=== PATIENT | female | born 1945 | race Caucasian/White ===

== ENCOUNTER 2019-07-09 02:16 | Emergency (ER) | payer MEDICARE, SELFPAY ==
[2019-07-09 02:25] VITALS: BP 188/83; PULSE 81; RESP 17; TEMP 36.6; O2SAT 98
--- NOTE | 2019-07-09 02:27 | ED.BACK ---
HPI - Back Pain/Injury General Chief Complaint: Back Pain/Injury Stated Complaint: back pain Time Seen by Provider: 07/09/19 02:25 Source: patient and RN notes reviewed Mode of arrival: other Limitations: no limitations History of Present Illness HPI Narrative: Pt is a 74 y/o female who presents to the ED with c/o chronic lower back pain that worsened yesterday (07/08/19) after going to the grocery store. Pt states that her pain feels like spasms. She notes that her pain has been constant without any relief of Tylenol or a hot shower. She states her pain is alleviated minimally when she lays in her recliner. Pt has a hx of cervical spinal stenosis and lumbar spinal stenosis. Pt has been to pain management for her sx. Pt states that she was recommended to come to the ED if her pain worsened before her appointment on 07/15/19. She states that this has been the worse episode of back pain she has ever had. She states that she was taking Baclofen and Ibuprofen, which alleviated her pain. She notes that she was taken off Baclofen and was prescribed a new medication, but the new medication has not helped her pain. Pt also reports right flank pain. MD elicited complaint: back pain Pertinent past history: prior back pain Onset (ago): day(s) (2) Timing: constant Severity: severe Similar Symptoms Previously: Yes Quality: spasming Location: right lower back and left lower back Relieving factors: other (minimally when laying in her recliner) Associated symptoms: other (right flank pain) Treatments prior to arrival: acetaminophen Related Data Home Medications Medication Instructions Recorded Confirmed loratadine 10 mg tablet 10 mg PO DAILY 02/20/19 03/04/19 Allergies Allergy/AdvReac Type Severity Reaction Status Date / Time sulfamethoxazole Allergy Unknown Rash Verified 07/09/19 02:30 trimethoprim Allergy Unknown Rash Verified 07/09/19 02:30 Review of Systems Review of Systems: All systems reviewed & are unremarkable except as noted in HPI and below Genitourinary: Genitourinary: Reports flank pain (right) Musculoskeletal: Musculoskeletal: Reports back pain (lower) [facility] Past Medical History Medical History (Updated 07/09/19 @ 03:45 by Cody Salmeron MD) Arthritis Asthma Body mass index (BMI) 35.0-35.9, adult Cataracts, bilateral Diverticulosis Dyslipidemia, goal LDL below 130 Hyperlipidemia Insomnia Non morbid obesity due to excess calories Normal stress echocardiogram Paresthesia Post-menopausal Seasonal allergies Spinal stenosis of lumbar region Spinal stenosis, cervical region UTI (urinary tract infection) Weakness of both legs Surgical History Surgical History (Updated 07/09/19 @ 02:46 by Kandy Hill) H/O breast biopsy left breast H/O dilation and curettage H/O skin graft x2 History of hysterectomy History of lumpectomy of right breast x2 Hx of cataract removal with insertion of prosthetic lens Hx of tonsillectomy Social History Social History Smoking status: Never smoker Second hand tobacco smoke exposure: No Exam Const: General: no acute distress and alert Orientation/consciousness: patient oriented x3 HENMT: Head: normal to inspection Resp: Effort & Inspection: normal respiratory effort Skin: General skin exam: normal color Neuro: General: patient oriented x3, moves all extremities and no focal motor deficits Speech: normal speech Gait exam (Neuro): Normal gait present Extrem: General: normal to inspection Course Vital Signs Vital signs: Vital Signs Temperature 36.6 C 07/09/19 02:25 Pulse Rate 81 07/09/19 02:25 Respiratory Rate 17 07/09/19 02:25 Blood Pressure 188/83 H 07/09/19 02:25 Pulse Oximetry 98 07/09/19 02:25 Temperature 36.6 C 07/09/19 02:25 Pulse Rate 81 07/09/19 02:25 Respiratory Rate 17 07/09/19 02:25 Blood Pressure 188/83 H 07/09/19 02:25 Pulse Oximetry 98
--- NOTE | 2019-07-09 02:30 | PC.NURSE ---
pt's daughter states this is ridiculous. I shouldn't have to choose between my parents. I don't give a shit about a policy.
[2019-07-09 03:12] VITALS: TEMP 36.6
[2019-07-09 04:13] VITALS: BP 172/79; PULSE 66; RESP 16; TEMP 36.4; O2SAT 95
== END 2019-07-09 04:16 | disposition home or self-care (01) ==
PROVIDERS: Emergency Provider Emergency Medicine; PCP Internal Medicine
DX: M54.6 Pain in thoracic spine (principal); G89.29 Other chronic pain; M48.02 Spinal stenosis, cervical region; M48.061 Spinal stenosis, lumbar region without neurogenic claudication; M19.90 Unspecified osteoarthritis, unspecified site; J45.909 Unspecified asthma, uncomplicated; E78.5 Hyperlipidemia, unspecified; E66.09 Other obesity due to excess calories; Z68.35 Body mass index [BMI] 35.0-35.9, adult; Z87.440 Personal history of urinary (tract) infections; Z98.42 Cataract extraction status, left eye; Z98.41 Cataract extraction status, right eye; Z96.1 Presence of intraocular lens
CPT/HCPCS: 96372; 99283; A9270; J3360

== ENCOUNTER 2019-10-08 10:50 | Outpatient (CLI) | payer MEDICARE, SELFPAY ==
--- NOTE | ~2019-10-08 | XR_ITS ---
EXAMINATION: XR hand RT min 3V, XR wrist RT min 3V DATE: 10/08/2019 11:27 INDICATION: Right hand and wrist pain TECHNIQUE: 1. Posteroanterior, ulnar deviation, oblique, and lateral views of the right wrist were obtained. 2. Dorsal palmar, oblique and lateral views of the right hand were obtained. COMPARISON: 01/04/2011 FINDINGS: Alignment of the right hand and wrist are normal. No fracture identified. Severe osteoarthritis at t he first carpometacarpal joint. Mild osteoarthritis at the triscaphe, first metacarpophalangeal and m ultiple predominantly distal interphalangeal joints. Again seen is a lucent likely degenerative subar ticular cyst with thin sclerotic margins located in the triquetrum. Osteopenia. Diffuse soft tissue s welling about the wrist. IMPRESSION: 1. 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 No acute osseous abnormal ity. Reviewed, dictated and finalized at location A. IMPRESSION: 1. 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 No acute osseous abnormality.
== END 2019-10-08 10:51 | disposition home or self-care (01) ==
LOC: ANHIMG 11:02
PROVIDERS: PCP Internal Medicine; Visit Provider Nurse Practitioner Adult Health
DX: M19.041 Primary osteoarthritis, right hand (principal); M25.531 Pain in right wrist
CPT/HCPCS: 73110; 73130

== ENCOUNTER → 2020-01-27 12:40 | Outpatient (CLI) | payer MEDICARE, SELFPAY ==
--- NOTE | ~2020-01-27 | MM_ITS ---
EXAMINATION: MM screening arleen BI w sharon HISTORY: Screening TECHNIQUE: Craniocaudal and mediolateral oblique 3-D tomosynthesis images were obtained and synthetic 2-D images were generated. CAD analysis was submitted and interpreted. COMPARISON: Comparison to multiple prior studies sequentially, with oldest reviewed study dated 05/29. BREAST PARENCHYMAL COMPOSITION: There are scattered areas of fibroglandular density. FINDINGS: There is no evidence of suspicious mass, calcification, or architectural distortion to sugg est malignancy in either breast. There has been no suspicious interval change. IMPRESSION: 1. No mammographic evidence of malignancy. 2. Recommend routine screening mammography in one year. BI-RADS Category 1: Negative Reviewed, dictated and finalized at location A.
== END ==
PROVIDERS: PCP Internal Medicine; Visit Provider Obstetrics & Gynecology
DX: Z12.31 Encounter for screening mammogram for malignant neoplasm of breast (principal)
CPT/HCPCS: 77063; 77067

== ENCOUNTER → 2021-07-08 12:13 | Outpatient (CLI) | payer MEDICARE, SELFPAY ==
--- NOTE | ~2021-07-08 | MM_ITS ---
EXAMINATION: MM screening arleen BI w sharon HISTORY: Screening TECHNIQUE: Craniocaudal and mediolateral oblique 3-D tomosynthesis images were obtained and synthetic 2-D images were generated. CAD analysis was submitted and interpreted. COMPARISON: Comparison to multiple prior studies sequentially, with oldest reviewed study dated 05/29. BREAST PARENCHYMAL COMPOSITION: There are scattered areas of fibroglandular density. FINDINGS: There is no evidence of suspicious mass, calcification, or architectural distortion to sugg est malignancy in either breast. There has been no suspicious interval change. IMPRESSION: 1. No mammographic evidence of malignancy. 2. Recommend routine screening mammography in one year. BI-RADS Category 1: Negative Reviewed, dictated and finalized at location A.
== END ==
PROVIDERS: PCP Internal Medicine; Visit Provider Obstetrics & Gynecology
DX: Z12.31 Encounter for screening mammogram for malignant neoplasm of breast (principal)
CPT/HCPCS: 77063; 77067

== ENCOUNTER 2021-11-11 11:12 | Outpatient (CLI) | payer MEDICARE, SELFPAY ==
[2021-11-11 18:05] LABS: Alanine Aminotransferase 26 U/L (6-35); Albumin Level 4.1 g/dL (3.5-5.1); Alkaline Phosphatase 103 U/L (38-126); Anion Gap 7 mmol/L (8-16); Aspartate Amino Transferase 32 U/L (14-36); Bilirubin,Total 0.6 mg/dL (0.2-1.3); Blood Urea Nitrogen 16 mg/dL (7-17); Calcium 8.9 mg/dL (8.4-10.2); Carbon Dioxide 28 mmol/L (22-30); Chloride 105 mmol/L (98-107); Cholesterol 251 mg/dL (0-200); Estimated Glomerular Filt Rate > 60; Glucose 93 mg/dL (65-110); HDL Direct 39 mg/dL; Potassium 4.7 mmol/L (3.4-5.0); Sodium 140 mmol/L (137-145); Triglycerides 179 mg/dL (<150)
[2021-11-11 18:16] LABS: LDL Cholesterol Direct 125 mg/dL
== END 2021-11-11 11:13 | disposition home or self-care (01) ==
LOC: ANHGOSHLAB 11:13
PROVIDERS: PCP Internal Medicine; Visit Provider Family Medicine
DX: E78.5 Hyperlipidemia, unspecified (principal); Z13.228 Encounter for screening for other metabolic disorders
CPT/HCPCS: 36415; 80053; 80061

== ENCOUNTER 2022-08-25 09:25 | Outpatient (CLI) | payer MEDICARE, SELFPAY ==
[2022-08-25 13:01] LABS: Alanine Aminotransferase 20 U/L (6-35); Albumin Level 4.3 g/dL (3.5-5.1); Alkaline Phosphatase 109 U/L (38-126); Anion Gap 7 mmol/L (8-16); Aspartate Amino Transferase 29 U/L (14-36); Bilirubin,Total 0.6 mg/dL (0.2-1.3); Blood Urea Nitrogen 17 mg/dL (7-17); Carbon Dioxide 29 mmol/L (22-30); Chloride 104 mmol/L (98-107); Estimated Glomerular Filt Rate > 60; Glucose 89 mg/dL (65-110); Potassium 4.4 mmol/L (3.4-5.0); Sodium 140 mmol/L (137-145)
[2022-08-25 13:26] LABS: Rubella IgG Antibody 49.3 IU/ML
[2022-08-30 15:07] LABS: Rubeola Measles IgG >300.00 AU/mL
== END 2022-08-25 09:26 | disposition home or self-care (01) ==
PROVIDERS: PCP Family Medicine; Visit Provider Family Medicine
DX: Z13.228 Encounter for screening for other metabolic disorders (principal); Z01.84 Encounter for antibody response examination
CPT/HCPCS: 36415; 80053; 86735; 86762; 86765

== ENCOUNTER 2022-11-28 08:22 | Outpatient (CLI) | payer MEDICARE, SELFPAY ==
--- NOTE | 2022-11-28 08:36 | ECHO_ITS ---
Patient Info Name: Prem Morales Age: 77 years : 1945 Gender: Female Ht: 67 in Wt: 236 lbs BSA: 2.30 m2 HR: 71 bpm BP: 161 / 98 mmHg Heart Rhythm: Sinus Rhythm Technical Quality: Good Exam Date: 11/28/2022 8:47 AM Exam Location: [facility] Patient Status: Outpatient Admit Date: 11/28/2022 Staff Ordering Physician: Jay Champagne DO Business Analysis Consultant: Arina Wu RDCS Attending Provider: Jay Champagne DO Referring Physician: Mahi AYON; Exam Type: CA echo doppler color flow Study Info Indications R06.09 - Other forms of dyspnea Complete two-dimensional, color flow and Doppler transthoracic echocardiogram is performed. Summary 1. Complete two-dimensional, color flow and Doppler transthoracic echocardiogram is performed. 2. Left ventricular chamber dimension is normal. 3. Left ventricular systolic function is normal, estimated at 60-65%. 4. There is mild concentric increased left ventricular wall thickness. 5. The left ventricular diastolic function is abnormal. 6. E/e' 15 is elevated. 7. There is mild aortic valve sclerosis. 8. There is mild mitral valve regurgitation. 9. There is trace tricuspid valve regurgitation. 10. Mild pulmonary hypertension, estimated pulmonary arterial systolic pressure is 42 mmHg. 11. Normal inferior vena cava with <50% collapse upon inspiration consistent with elevated right atrial pressure, 10 mmHg. Left Ventricle E/e' 15 is elevated. Left ventricular chamber dimension is normal. Left ventricular systolic function is normal, estimated at 60-65%. There is mild concentric increased left ventricular wall thickness. The left ventricular diastolic function is abnormal. Right Ventricle Right ventricular systolic function is normal and with normal TAPSE 2.5 cm. Right ventricular chamber dimension is normal. Left Atria Left atrial chamber dimension is normal. Right Atria Right atrial chamber dimension is normal. Aortic Valve The aortic valve is trileaflet. There is mild aortic valve sclerosis. There is no aortic valve stenosis. There is no aortic valve regurgitation. Pulmonic Valve There is no pulmonic regurgitation. Mitral Valve There is no mitral valve stenosis. There is mild mitral valve regurgitation. Tricuspid Valve There is trace tricuspid valve regurgitation. Mild pulmonary hypertension, estimated pulmonary arterial systolic pressure is 42 mmHg. Pericardium/Pleural There is no pericardial effusion. Inferior Vena Cava Normal inferior vena cava with <50% collapse upon inspiration consistent with elevated right atrial pressure, 10 mmHg. Aorta The aortic root size at the sinus of Valsalva is normal. Left Ventricular Outflow Tract Name Value Normal LVOT 2D LVOT Diameter 2.0 cm LVOT Doppler LVOT Peak Gradient 5 mmHg LVOT Mean Gradient 2 mmHg LVOT VTI 26 cm LVOT VTI/AV VTI Ratio 0.7 LVOT Stroke Volume 78 ml LVOT CO 5.0 l/min LVOT CI 2.2 l/min/m2 Pulmonic Valve
== END 2022-11-28 08:23 | disposition home or self-care (01) ==
PROVIDERS: PCP Family Medicine; Visit Provider Family Medicine
DX: R06.09 Other forms of dyspnea (principal); I08.3 Combined rheumatic disorders of mitral, aortic and tricuspid valves
CPT/HCPCS: 93306

== ENCOUNTER 2022-12-06 13:49 | Outpatient (CLI) | payer MEDICARE, SELFPAY ==
--- NOTE | ~2022-12-06 | XR_ITS ---
XR abdomen/kub 1V 12/06/2022 14:16 Indication: Gross hematuria Procedure: KUB Comparison: No prior studies for comparison. Findings: Bowel gas pattern nonobstructive. Moderate colonic fecal loading. There is a right pelvic p hlebolith. No definite renal/ureteral stones. Lung bases unremarkable. Mild lumbar spondylosis. No ac cantwell osseous abnormality. There is osteoarthritis of the hips, right greater than left. Impression: 1: No acute abdominal abnormality. Reviewed, dictated and finalized at location B. Impression: 1: No acute abdominal abnormality.
--- NOTE | ~2022-12-06 | CT_ITS ---
EXAMINATION: CT abdomen pelvis wo/w con DATE: 12/06/2022 14:38 INDICATION: Gross hematuria. TECHNIQUE: Computed tomography (CT) of the abdomen and pelvis was performed without and with intraven ous contrast using a total of 130 mL Omnipaque-350 intravenous contrast with a double-bolus technique for simultaneous opacification of the renal parenchyma and renal collecting system. Automated exposu re control and iterative reconstruction technique were employed. The dose-length product was 2654.10 mGy-cm. COMPARISON: None FINDINGS: The visualized portions of the lung bases demonstrate mild atelectasis and mild chronic lung disease. No pleural effusion. The heart size is normal. No pericardial effusion. The liver, gallbladder, sple en, pancreas, and adrenal glands are normal. There are cysts in the kidneys measuring up to 4.0 cm on the left. There is no urolithiasis. The ureters are well opacified and are normal. The bladder is no t well distended. There are no dilated loops of bowel. The appendix is normal. There are no pathologi gm enlarged lymph nodes. There is no free intraperitoneal fluid. Aortic atherosclerosis is noted. There is moderate lumbar spondylosis. IMPRESSION: 1. No etiology for hematuria. Reviewed, dictated and finalized at location A.
[2022-12-06 14:22] LABS: Estimated Glomerular Filt Rate > 60
== END 2022-12-06 13:50 | disposition home or self-care (01) ==
PROVIDERS: PCP Family Medicine; Visit Provider Nurse Practitioner Adult Health
DX: R31.0 Gross hematuria (principal)
CPT/HCPCS: 74018; 74178; Q9967

== ENCOUNTER 2022-12-15 08:19 | Outpatient (CLI) | payer MEDICARE, SELFPAY ==
--- NOTE | ~2022-12-15 | NM_ITS ---
EXAMINATION: NM messi stress w perfusion DATE: 12/15/2022 10:41 INDICATION: Other forms of dyspnea TECHNIQUE: Rest images were obtained following intravenous administration of 11 mCi Tc99m tetrofosmin (Myoview). The patient was infused intravenously with Lexiscan (Regadenoson). Then, 34.6 mCi Tc99m t etrofosmin (Myoview) was administered intravenously, and stress images were obtained. Data was recons tructed into short axis and horizontal and vertical long axis SPECT images. Gated SPECT images were a lso obtained. COMPARISON: None. FINDINGS: There is no definite reversible or fixed perfusion abnormality to suggest ischemia or infar ction. There is normal left ventricular chamber size, wall motion and ejection fraction. Left ventr icular ejection fraction measures 67%. IMPRESSION: 1. Normal myocardial perfusion at rest and during stress. 2. Left ventricular ejection fraction measuring 67%. Reviewed, dictated and finalized at location A.
--- NOTE | 2022-12-15 08:43 | EST_ITS ---
Patient Info Name: Prem Morales Age: 77 years : 1945 Gender: Female Ht: 67 in Wt: 230 lbs BSA: 2.26 m2 HR: 66 bpm BP: 119 / 63 mmHg Heart Rhythm: Sinus Rhythm Exam Date: 12/15/2022 9:27 AM Exam Location: [facility] Stress Patient Status: Outpatient Admit Date: 12/15/2022 Staff Ordering Physician: Jay Champagne DO Attending Provider: Jay Champagne DO Exercise Technologist: Maday Ortiz CT Exercise Physician: Flash Howe DO Exam Type: CA stress messi w NM Study Info Indications R06.09 - Other forms of dyspnea A regadenoson stress test was performed. Summary 1. 1. Negative lexiscan stress test for ischemic ST changes by ECG criteria. 2. 2. Stable hemodynamics throughout the test. 3. 3. Nuclear scan to follow and will be reported separately. Please correlate with it. 4. 4. Patient informed of the above results. Protocol: Lexiscan Stress ECG Details Stage: REST Duration (min): 2 min : 12 sec HR (bpm): 65 SBP (mmHg): 119 DBP (mmHg): 63 Stage: REST Duration (min): 24 min : 37 sec HR (bpm): 68 SBP (mmHg): 119 DBP (mmHg): 63 Stage: STAGE 1 Duration (min): 1 min : 0 sec HR (bpm): 74 SBP (mmHg): 130 DBP (mmHg): 47 Stage: RECOVERY Duration (min): 1 min : 0 sec HR (bpm): 73 SBP (mmHg): 130 DBP (mmHg): 47 Stage: RECOVERY Duration (min): 2 min : 0 sec HR (bpm): 73 SBP (mmHg): 130 DBP (mmHg): 47 Stage: RECOVERY Duration (min): 3 min : 0 sec HR (bpm): 72 SBP (mmHg): 108 DBP (mmHg): 53 Stage: RECOVERY Duration (min): 3 min : 3 sec HR (bpm): 73 SBP (mmHg): 108 DBP (mmHg): 53 Rest HR: 68 bpm Peak HR: 76 bpm Rest Sys BP: 119 mmHg Peak Sys BP: 130 mmHg Max Pred HR: 144 bpm % Max Pred HR: 53 % Target HR: 122 bpm Max RPP: 9,880 bpm*mmHg Termination Reason: Completed protocol Cardiac Symptoms: Shortness of breath Total Time: 1 min : 0 sec Rest Cormier BP: 63 mmHg Peak Cormier BP: 47 mmHg Total Dose: 0.4 mg Resting ECG Sinus rhythm. Stress ECG No ST changes. Arrhythmias None. Report Signatures
== END 2022-12-15 08:20 | disposition home or self-care (01) ==
PROVIDERS: PCP Family Medicine; Visit Provider Family Medicine
DX: R06.09 Other forms of dyspnea (principal); R61 Generalized hyperhidrosis
CPT/HCPCS: 78452; 93017; A9502; J2785

== ENCOUNTER → 2023-01-26 14:30 | Outpatient (CLI) | payer MEDICARE, SELFPAY ==
--- NOTE | ~2023-01-26 | MM_ITS ---
EXAMINATION: MM screening arleen BI w sharon HISTORY: Screening mammogram TECHNIQUE: Craniocaudal and mediolateral oblique 3-D tomosynthesis images were obtained and synthetic 2-D images were generated. CAD analysis was submitted and interpreted. COMPARISON: 07/08/2021, 01/27/2020, 09/19/2018 bilateral screening mammogram examinations BREAST PARENCHYMAL COMPOSITION: There are scattered areas of fibroglandular density. Biopsy marker is again noted on the left. History of prior bilateral benign breast biopsies. FINDINGS: There is no evidence of suspicious mass, calcification, or architectural distortion to sugg est malignancy in either breast. There has been no suspicious interval change. IMPRESSION: 1. No mammographic evidence of malignancy. 2. Recommend routine screening mammography in one year. BI-RADS Category 1: Negative Reviewed, dictated and finalized at location A.
== END ==
PROVIDERS: PCP Obstetrics & Gynecology; Visit Provider Obstetrics & Gynecology
DX: Z12.31 Encounter for screening mammogram for malignant neoplasm of breast (principal)
CPT/HCPCS: 77063; 77067

== ENCOUNTER → 2023-03-06 14:47 | Outpatient (CLI) | payer MEDICARE, SELFPAY ==
--- NOTE | ~2023-03-06 | XR_ITS ---
EXAM: XR hip RT min 2V, XR hip LT min 2V DATE: 03/06/2023 15:04 HISTORY: fall 1 month ago lbp with bilat hip pain . COMPARISON: None available. FINDINGS: Decreased mineralization. Degenerative changes in the lumbar spine. Mild degenerative jacome ge in the bilateral SI joints. Mild degenerative change at the pubic symphysis. Moderate right and mi ld left hip degenerative change. No fracture or dislocation. IMPRESSION: Osteopenia. Moderate right and mild left hip osteoarthritis. Mild osteitis pubis. Reviewed, dictated and finalized at location K. ING MACHINE OPERATOR IMPRESSION: Osteopenia. Moderate right and mild left hip osteoarthritis. Mild o steitis pubis.
--- NOTE | ~2023-03-06 | XR_ITS ---
EXAMINATION: XR lumbar spine min 4V DATE: 03/06/2023 15:04 INDICATION: Low back pain TECHNIQUE: Anteroposterior, lateral, and bilateral oblique views of the lumbar spine, and cone-down l ateral view of the lumbosacral junction were obtained. COMPARISON: None. FINDINGS: Bone alignment is normal. There is no fracture. There is mild loss of intervertebral disc s pace height throughout the lumbar spine. The vertebral body heights are maintained. There is severe f acet joint osteoarthritis at L3-4, L4-5, and L5-S1. Calcified atherosclerosis is noted. IMPRESSION: 1. Mild lumbar spondylosis without acute findings. Reviewed, dictated and finalized at location F. T MUSIC SALESPERSON
== END ==
PROVIDERS: PCP Family Medicine; Visit Provider Family Medicine
DX: M25.551 Pain in right hip (principal); M25.552 Pain in left hip; M47.896 Other spondylosis, lumbar region; M85.852 Other specified disorders of bone density and structure, left thigh; M85.851 Other specified disorders of bone density and structure, right thigh; M16.0 Bilateral primary osteoarthritis of hip
CPT/HCPCS: 72110; 73502

== ENCOUNTER 2023-04-27 14:30 | Outpatient (RCR) | payer MEDICARE, SELFPAY ==
--- NOTE | 2023-03-30 17:07 | OPREHPOC ---
Outpatient Therapy Plan of Care This is a Multidisciplinary Plan of Care that may contain components documented by all disciplines (PT, OT, and ST.) PT Problem 1 PT Problem #1 Knowledge Deficit PT Goal 1 Goal Pt to be IND with issued HEP Target Visit 8 PT Problem 2 PT Problem #2 Pain PT Goal 1 Goal Pt to report hip pain no greater than 3/10 in the last week. Target Visit 8 PT Goal 2 Goal Pt to report 50% improvement in overall symptoms. Target Visit 8 PT Problem 3 PT Problem #3 Impaired Gait PT Goal 1 Goal Pt to improve 2 min walk distance from 315ft to 400ft Target Visit 8 PT Goal 2 Goal Pt to ambulate with equal stride length Target Visit 8 PT Problem 4 PT Problem #4 Impaired Range of Motion PT Goal 1 Goal Pt to improve passive hip ROM to 0 deg Target Visit 8 PT Problem 5 PT Problem #5 Impaired Functional Mobil PT Goal 1 Goal Pt to demonstrate a 20lb lift and carry without compensations Target Visit 8
--- NOTE | 2023-03-30 17:08 | PTOPEVAL1 ---
Assessment and note entered by Marah Ricardo, PT, DPT Evaluation Information Assessment Status Evaluation Diagnosis hip OA Onset 4 years Subjective Information Pt reports 2 falls in the last 3 months. She states she tripped and fell forward and few weeks ago. 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 She reports chronic lumbar stenosis that causes back spasms frequently. She states her back feels back to normal since her fall. Currently she reports lower back and hip pain on R side more than the L. She states she feels her hip ROM is limited. She states her standing tolerance is limited d/t her back and hip pain. Reported Pain Level Pain Score 3: Self Report Assessment PT Clinical Summary Prem presents to therapy for her initial evaluation with a diagnosis of R hip OA. Today she demonstrates decreased R hip passive ROM as well as decreased strength R>L, both limited by pain. She ambulates with a flexed posture d/t lack of terminal knee extension. She demonstrates increased time on the 5xSTS placing her at an increased risk for falls. Skilled therapy services are indicated to address the deficits noted above, to improve pain reports, and to improve functional mobility. Plan of Care Interventions Electrical Stimulation,Gait Training,Hot Pack/Cold Pack,Manual Therapy,Neuro Re-education,Patient/ Caregiver Educati,Therapeutic Activities, Therapeutic Exercise PT Services Indicated Yes Treatment Frequency and 2x/wk for 8 visits Duration These treatments will address the objective and functional deficits as defined above. The patient will be advanced safely and appropriately in order for the patient to progress towards his/her prior level of function. Additional exercises will be introduced and as well as a comprehensive home exercise program upon discharge, if needed, ?to ensure carryover of functional gains achieved in the clinic. This treatment plan has been reviewed and agreement upon by the patient.
--- NOTE | 2023-04-27 15:25 | PTOPDC ---
Assessment and note entered by Marah iRcardo, PT, DPT Evaluation Information Assessment Status Discharge Diagnosis hip OA Onset 4 years Subjective Information Pt reports therapy is progressing well, she states her hip does not hurt as much as it did prior. She states her back is the limiting factor, she states she can only stand for about 10 mins before she needs to sit down. She states she has been sleeping with a pillow in between the knees and using a log roll technique to get out of bed. She states her exercises help her to get through the day. Reported Pain Level Pain Score 2,1: Self Report Assessment PT Clinical Summary Prem presents to therapy for her progress report following 8 visits of skilled therapy to treat her diagnosis of R hip OA. Today she demonstrates some progress in her passive hip ROM, gait speed, and body mechanics. She reports 75% improvement in her overall function. She elected to continue her HEP at home vs continue with therapy despite recommendation.
== END 2023-04-27 16:11 | disposition home or self-care (01) ==
LOC: ANHGOSHPT 14:30
PROVIDERS: PCP Family Medicine; Visit Provider Family Medicine
DX: M16.11 Unilateral primary osteoarthritis, right hip (principal)
CPT/HCPCS: 97110; 97140; 97161; 97530

== ENCOUNTER 2023-06-20 15:21 | Emergency (ER) | payer MEDICARE, SELFPAY ==
--- NOTE | ~2023-06-20 | XR_ITS ---
EXAMINATION: XR chest 2V DATE: 06/20/2023 15:52 INDICATION: Chest heaviness. Shortness of breath. Cough. TECHNIQUE: Frontal and lateral views of the chest were obtained. COMPARISON: CT abdomen and pelvis 12/06/2022 FINDINGS: There is mild atelectasis at right lung base. No pleural effusion or pneumothorax. The hear t size is normal. IMPRESSION: 1. Mild atelectasis at right lung base. Reviewed, dictated and finalized at location E. S BLOWING INSTRUCTOR
--- NOTE | 2023-06-20 15:23 | ED.CHESTPAIN ---
HPI - Chest Pain General Chief Complaint: Chest Pain Stated Complaint: CHEST HEAVINESS/LIGHT HEADED/NAUSEA Time Seen by Provider: 06/20/23 15:23 Source: patient Mode of arrival: ambulatory Limitations: no limitations History of Present Illness HPI narrative: Prem is a 78-year-old female patient presenting to the clinic today with complaints of chest heaviness,tightness, dizziness, and nausea x3 days. She reports shortness of breath on exertion. She coughed up some yellow phlegm yesterday. Denies any fever, chills, or body aches. Reports the chest heaviness is across her entire anterior chest. Denies having any chest pain or radiation of pain. At home COVID test is negative today prior to coming into the [facility]. History of asthma. Reports that she did have COVID over 1 month ago. Related Data Home Medications Medication Instructions Recorded Confirmed fluticasone propionate 50 1 spray intranasal DAILY 03/06/23 06/20/23 mcg/actuation nasal spray,suspension (Flonase Allergy Relief) Allergies Allergy/AdvReac Type Severity Reaction Status Date / Time sulfamethoxazole Allergy Intermediate Rash Verified 06/20/23 15:41 trimethoprim Allergy Intermediate Rash Verified 06/20/23 15:41 Review of Systems Review of Systems: Pertinent positives per HPI. Patient denies any fever, chills, rash, headache, visual changes, runny nose, sore throat, palpitations, vomiting, diarrhea, constipation, abdominal pain, or any urinary issues. PMFSH Past Medical History Medical History Arthritis Asthma Body mass index (BMI) 35.0-35.9, adult Cataracts, bilateral Diverticulosis Dyslipidemia, goal LDL below 130 Encounter for counseling regarding immunization Hyperlipidemia Insomnia Non morbid obesity due to excess calories Normal stress echocardiogram Paresthesia Post-menopausal Screen for colon cancer Screening for breast cancer Seasonal allergies Spinal stenosis of lumbar region Spinal stenosis, cervical region UTI (urinary tract infection) Weakness of both legs Surgical History Surgical History H/O breast biopsy left breast H/O dilation and curettage H/O skin graft x2 History of hysterectomy History of lumpectomy of right breast x2 Hx of cataract removal with insertion of prosthetic lens Hx of tonsillectomy Family History Family History Father Family history of malignant neoplasm Mother Family history of malignant neoplasm Family history of kidney disease Social History Social History Smoking status: Never smoker Second hand tobacco smoke exposure: No Alcohol intake: former Alcohol use details: occasional Substance use: never Lack of Transportation: No Lack of Food: Never True Current Housing: I Have Housing Concerned About Future Housing: No Difficulty Paying Gas/Electric Bills: No Difficulty Paying for Meds: No Currently Unemployed: No Education: Trade/Vocational Certificate Difficulty w/ Childcare or Family Care: No Living arrangements: other Additional living arrangements comments: daughter Occupation/Education: retired Gender identity (if verbalized by the patient): Female Sexual Orientation (if Verbalized by the Patient): Straight or Heterosexual Comments At the time of my signature, I reviewed and agree with the nursing past medical, surgical, social, and family history. There is no relevant family history pertinent to the patient complaint. Exam Narrative: General: Well-developed, obese, in no apparent distress Head: Normocephalic, atraumatic Eyes: Pupils equally round and reactive to light bilaterally, EOM intact, sclera and conjunctive clear, no discharge, lids normal Ears: Left TM intact and opaque, left e
[2023-06-20 15:27] VITALS: BP 130/69; PULSE 75; RESP 16; TEMP 36.9; O2SAT 97
--- NOTE | 2023-06-20 15:27 | ECG_ITS ---
Measurements Intervals [place] Rate: 68 P: 31 NE: 137 QRS: 33 QRSD: 88 T: 48 QT: 400 QTc: 426 Interpretive Statements SINUS RHYTHM INCOMPLETE RIGHT BUNDLE BRANCH BLOCK BASELINE ARTIFACT- I, II, III, AVR, AVL, AVF BORDERLINE ECG NO PREVIOUS ECG AVAILABLE FOR COMPARISON Electronically Signed On 06-21-2023 14:52:38 LOG SAWYER by Flash Howe D.O.
== END 2023-06-20 16:17 | disposition short-term general hospital (02) ==
PROVIDERS: Emergency Provider Nurse Practitioner Family; PCP Family Medicine
DX: R07.89 Other chest pain (principal); R06.09 Other forms of dyspnea; R42 Dizziness and giddiness; M19.90 Unspecified osteoarthritis, unspecified site; J45.909 Unspecified asthma, uncomplicated; E78.5 Hyperlipidemia, unspecified; M48.061 Spinal stenosis, lumbar region without neurogenic claudication; M48.02 Spinal stenosis, cervical region; Z96.1 Presence of intraocular lens; Z98.42 Cataract extraction status, left eye; Z98.41 Cataract extraction status, right eye
CPT/HCPCS: 71046; 93005; 99213; G0463

== ENCOUNTER 2023-06-20 16:41 | Emergency (ER) | payer MEDICARE, SELFPAY ==
--- NOTE | ~2023-06-20 | XR_ITS ---
Portable chest x-ray Comparison: 06/20/2023 Clinical History: Shortness of breath Findings: Lungs are clear, without focal consolidation or pleural effusion. Cardiomediastinal silho uette is stable. Bones and soft tissues are unremarkable. Impression: Clear lungs. Reviewed, dictated and finalized at location . LEADER Impression: Clear lungs.
--- NOTE | ~2023-06-20 | CT_ITS ---
Clinical Indication: Elevated d-dimer CT Scan of the Chest with Contrast: Technique: Contiguous sections were acquired throughout the chest after intravenous administration of 100 cc of Omnipaque 350. Dose reduction technique was used on this scan by utilizing automated expos ure control and iterative reconstruction technique. The dose-length product (DLP) was 475.42 mGy-cm. Findings: There is no evidence of any significant mediastinal, hilar or axillary lymphadenopathy. There is no f illing defect in the pulmonary arterial tree to suggest pulmonary embolus. There is no evidence of ao rtic dissection or aneurysm. There is no evidence of pleural or pericardial effusion. The lungs are clear. No pulmonary nodules or infiltrates are noted. Images through the upper abdomen reveal no abnormalities. Impression: No evidence of pulmonary embolus, aortic dissection, or aortic aneurysm. Clear lungs. Reviewed, dictated and finalized at [facility]. HI DEVELOPER Impression: No evidence of pulmonary embolus, aortic dissection, or aortic aneurysm. Clear lungs.
[2023-06-20 16:54] VITALS: BP 127/79; PULSE 72; RESP 16; TEMP 36.4; O2SAT 98
--- NOTE | 2023-06-20 16:59 | ED.CHESTPAIN ---
HPI - Chest Pain General Chief Complaint: Chest Pain <Rosalind Raman PA-C - Last Filed: 06/22/23 18:42> Stated Complaint: chest pressure/tightness <Rsoalind Raman PA-C - Last Filed: 06/22/23 18:42> Time Seen by Provider: 06/20/23 16:59 <Rosalind Raman PA-C - Last Filed: 06/22/23 18:42> Focused HPI: This is a 78 year old female that presents to the ER for chest pain. Reports chest tightness. Like there is a band around her chest. Ongoing over the last couple of days. Reports exertional dyspnea. Reports a cough. Denies fever, lower extremity edema. GENERAL: Well-appearing, well-nourished, and in no acute distress. HEAD: Normocephalic, atraumatic. CHEST: Clear to auscultation. ?No respiratory distress. HEART: Regular rate and rhythm.? NEURO: ?Alert and oriented x3. Patient screened in triage and initial orders placed.? ?Additional care and disposition to be based upon?diagnostic testing and treatment. <Rosalind Raman PA-C - Last Filed: 06/22/23 18:42> Related Data Home Medications: Home Medications Medication Instructions Recorded Confirmed fluticasone propionate 50 1 spray intranasal DAILY 03/06/23 06/20/23 mcg/actuation nasal spray,suspension (Flonase Allergy Relief) <Rosalind Raman PA-C - Last Filed: 06/22/23 18:42> Allergies/Adverse Reactions: Allergies Allergy/AdvReac Type Severity Reaction Status Date / Time sulfamethoxazole Allergy Intermediate Rash Verified 06/20/23 15:41 trimethoprim Allergy Intermediate Rash Verified 06/20/23 15:41 <Rosalind Raman PA-C - Last Filed: 06/22/23 18:42> Review of Systems Review of Systems: All systems are reviewed and are negative unless stated otherwise in the HPI. <Shelton Osorio MD - Last Filed: 06/21/23 05:19> PMFSH Past Medical History Medical History: Medical History Arthritis Asthma Body mass index (BMI) 35.0-35.9, adult Cataracts, bilateral Diverticulosis Dyslipidemia, goal LDL below 130 Encounter for counseling regarding immunization Hyperlipidemia Insomnia Non morbid obesity due to excess calories Normal stress echocardiogram Paresthesia Post-menopausal Screen for colon cancer Screening for breast cancer Seasonal allergies Spinal stenosis of lumbar region Spinal stenosis, cervical region UTI (urinary tract infection) Weakness of both legs <Rosalind Raman PA-C - Last Filed: 06/22/23 18:42> Surgical History Surgical History: Surgical History H/O breast biopsy left breast H/O dilation and curettage H/O skin graft x2 History of hysterectomy History of lumpectomy of right breast x2 Hx of cataract removal with insertion of prosthetic lens Hx of tonsillectomy <Rosalind Raman PA-C - Last Filed: 06/22/23 18:42> Family History Family History: Family History Father Family history of malignant neoplasm Mother Family history of malignant neoplasm Family history of kidney disease <Rosalind Raman PA-C - Last Filed: 06/22/23 18:42> Social History Social History: Social History Smoking status: Never smoker Second hand tobacco smoke exposure: No Alcohol intake: former Alcohol use details: occasional Substance use: never Lack of Transportation: No Lack of Food: Never True Current Housing: I Have Housing Concerned About Future Housing: No Difficulty Paying Gas/Electric Bills: No Difficulty Paying for Meds: No Currently Unemployed: No Education: Trade/Vocational Certificate Difficulty w/ Childcare or Family Care: No Living arrangements: other Additional living arrangements comments: daughter Occupation/Education: retired Gender identity (if verbalized by the patient): Female Sexual Orientation (if Verbali
[2023-06-20 18:27] LABS: Basophils Percent Auto 0.5 % (0.2-1.2); Eosinophils Absolute Auto 0.2 K/mm3 (0-0.3); Eosinophils Percent Auto 2.9 % (0-4.4); Hematocrit 40.6 % (37.0-47.0); Hemoglobin 12.8 g/dL (12.0-15.0); Immature Granulocyte Absolute 0.03 K/mm3 (0.00-0.031); Immature Granulocyte Percent A 0.4 % (0-0.5); Lymphocytes Absolute Auto 2.22 K/mm3 (0.9-3.2); Lymphocytes Percent Auto 26.9 % (18.3-44.2); Mean Corpuscular HGB Conc 31.5 g/dl (32-36); Mean Corpuscular Hemoglobin 28.3 pg (26-34); Mean Corpuscular Volume 89.8 fl (80-100); Mean Platelet Volume 9.3 fl (7.4-10.4); Monocytes Absolute Auto 0.7 K/mm3 (0.1-0.6); Monocytes Percent Auto 7.9 % (2.6-8.5); Neutrophils Absolute Auto 5.1 K/mm3 (1.3-6.7); Neutrophils Percent Auto 61.4 % (45.5-73.1); Platelet Count Result 268 k/mm3 (150-375); Red Blood Count 4.52 M/mm3 (4.2-5.4); Red Cell Distribution Width 14.6 % (11.5-14.5); White Blood Count 8.3 K/mm3 (4.5-10.0)
[2023-06-20 18:39] LABS: Alanine Aminotransferase 17 U/L (6-35); Albumin Level 4.3 g/dL (3.5-5.1); Alkaline Phosphatase 84 U/L (38-126); Anion Gap 8 mmol/L (8-16); Aspartate Amino Transferase 24 U/L (14-36); Bilirubin,Total 0.7 mg/dL (0.2-1.3); Blood Urea Nitrogen 32 mg/dL (7-17); Calcium 9.2 mg/dL (8.4-10.2); Carbon Dioxide 24 mmol/L (22-30); Chloride 108 mmol/L (98-107); Estimated CRCL calculation 32 ml/min; Estimated Glomerular Filt Rate 31; Glucose 105 mg/dL (65-110); Lipase 70 U/L (23-300); Potassium 4.4 mmol/L (3.4-5.0); Sodium 140 mmol/L (137-145)
[2023-06-20 18:40] LABS: Prothrombin Time 13.4 Seconds (11.1-14.7)
[2023-06-20 18:41] LABS: Partial Thromboplastin Time 31.6 SECONDS (22.3-36.8)
[2023-06-20 18:51] LABS: D Dimer 0.85 ug/mL (<0.48); Troponin I < 0.012 ng/mL (0.000-0.034)
[2023-06-20 21:19] LABS: Troponin I < 0.012 ng/mL (0.000-0.034)
--- NOTE | 2023-06-21 00:20 | ECG_ITS ---
Measurements Intervals [place] Rate: 60 P: 27 TN: 148 QRS: 29 QRSD: 86 T: 38 QT: 419 QTc: 421 Interpretive Statements SINUS RHYTHM INCOMPLETE RIGHT BUNDLE BRANCH BLOCK BORDERLINE ST-T WAVE ABNORMALITY- ANTERIOR LEADS BASELINE ARTIFACT- I, II, III, AVR, AVL, AVF BORDERLINE ECG NO PREVIOUS ECG AVAILABLE FOR COMPARISON Electronically Signed On 06-21-2023 6:30:43 AQUATIC INSTRUCTOR by Flash Howe D.O.
[2023-06-21 00:22] VITALS: PULSE 69; O2SAT 99
[2023-06-21 00:30] VITALS: BP 151/92; PULSE 64; RESP 19; O2SAT 97
[2023-06-21 01:37] LABS: Influenza A QL RT-PCR Negative (Negative); Influenza B QL RT-PCR Negative (Negative); RSV RNA, RT-PCR Negative (Negative); SARS-CoV-2 RNA PCR Negative (Negative)
[2023-06-21 02:43] VITALS: BP 150/70; PULSE 62; RESP 18; O2SAT 96
== END 2023-06-21 02:50 | disposition home or self-care (01) ==
PROVIDERS: Physician Assistant; Emergency Provider Emergency Medicine; PCP Family Medicine
DX: R06.02 Shortness of breath (principal); R07.89 Other chest pain; Z20.822 Contact with and (suspected) exposure to COVID-19; M19.90 Unspecified osteoarthritis, unspecified site; J45.909 Unspecified asthma, uncomplicated; E78.5 Hyperlipidemia, unspecified; Z87.440 Personal history of urinary (tract) infections
CPT/HCPCS: 36415; 71045; 71046; 71275; 80053; 83690; 84484; 85025; 85380; 85610; 85730; 87637; 93005; 99284; Q9967

== ENCOUNTER 2023-06-25 14:39 | Outpatient (CLI) | payer MEDICARE, SELFPAY ==
[2023-06-25 19:52] LABS: Anion Gap 8 mmol/L (8-16); Blood Urea Nitrogen 36 mg/dL (7-17); Calcium 9.3 mg/dL (8.4-10.2); Carbon Dioxide 26 mmol/L (22-30); Chloride 103 mmol/L (98-107); Estimated Glomerular Filt Rate 27; Glucose 94 mg/dL (65-110); Potassium 4.8 mmol/L (3.4-5.0); Sodium 137 mmol/L (137-145)
== END 2023-06-25 14:40 | disposition home or self-care (01) ==
LOC: ANHGOSHLAB 14:40
PROVIDERS: PCP Family Medicine; Visit Provider Family Medicine
DX: Z13.228 Encounter for screening for other metabolic disorders (principal)
CPT/HCPCS: 36415; 80048

== ENCOUNTER 2023-07-10 13:39 | Outpatient (CLI) | payer MEDICARE, SELFPAY ==
[2023-07-10 19:24] LABS: Anion Gap 5 mmol/L (4-12); Blood Urea Nitrogen 19 mg/dL (7-17); Calcium 9.5 mg/dL (8.4-10.2); Carbon Dioxide 27 mmol/L (22-30); Chloride 106 mmol/L (98-107); Estimated Glomerular Filt Rate > 60; Glucose 80 mg/dL (65-110); Potassium 4.4 mmol/L (3.4-5.0); Sodium 138 mmol/L (137-145)
== END 2023-07-10 13:40 | disposition home or self-care (01) ==
LOC: ANHGOSHLAB 13:41
PROVIDERS: PCP Family Medicine; Visit Provider Family Medicine
DX: Z13.228 Encounter for screening for other metabolic disorders (principal)
CPT/HCPCS: 36415; 80048

== ENCOUNTER 2023-07-26 00:29 | Day surgery (SDC) | payer MEDICARE, SELFPAY ==
--- NOTE | 2023-07-23 11:06 | PC.NURSE ---
Report to the Outpatient Waiting Room, entrance under the green pavilion located off [facility], at time __0730 on date __07/26/23 . Planned Procedure Time: __929 . Time changes happen often and if your time is changed the preop area will call you the afternoon before. - You and your visitor will be asked to self-screen and do not enter if you have any COVID symptoms. - A mask is optional within the hospital at this time. Patients may have clear liquids (water, carbonated beverages, clear teas, apple juice) until 3 hours prior to surgery(0630) with a maximum of 20 ounces. - No food from midnight until time of surgery - Infants may have breast milk until 4 hours before surgery, formula 6 hours prior to surgery. - Children will be allowed to drink immediately following surgery. If applicable, please bring a bottle or sippy cup to assist with drinking. Juice, water, soda, and popsicles are readily available. For infants on formula, please bring formula the day of surgery. Pacifiers are allowed. Take the following medications with a SIP of water the morning of surgery: __DULOXETINE,INHALER DO NOT STOP ANY OF YOUR OTHER PRESCRIPTION MEDICATIONS PRIOR TO SURGERY ?EXCEPT THE FOLLOWING Medications to discontinue per physician NONE Please no make-up, nail maori, hairspray, perfume, deodorant, or body powder the day of surgery. No jewelry (including any body piercings) or valuables the day of surgery, leave them at home. Please take a shower or bath the night before, or the morning of, surgery with an antibacterial soap. Wear comfortable, loose fitting clothing. Children are encouraged to wear pajamas. - Jewelry must be removed prior to entering the operating room. Rings and piercings that are not removed may be cut off. - The hospital will not accept responsibility for valuables. - Please leave all valuables, including medications, at home the day of surgery. If you are going home after surgery, a licensed cat driver must drive you home. - NO public transportation without another adult if you receive anesthesia. - We recommend that an adult stay with you for 24 hours following discharge. - We also recommend that you do not drive, make important decision, drink alcoholic beverages, or take any drugs that were not prescribed by your health care provider for at least 24 hours after your discharge time. Follow any additional instructions given to you from your surgeon. If you or anyone in your household have experienced Covid symptoms in the past week, please notify your surgeon or the nurse liaison at the phone number below for possible testing. Telephone instructions given to ___PATIENT and asked if any additional questions and then verbalized understanding. Patient advised to call surgeon office or pre surgery nurse liaison [phone] if any additional questions.
[2023-07-23 11:12] VITALS: BMI 34.4
--- NOTE | 2023-07-26 06:28 | WPDHPUPDATE1 ---
History and Physical Update Update Date/Time: 07/26/23 06:28 History and Physical has been reviewed, including an updated exam of the patient. There are NO changes in the patient's condition. Risks, benefits, and alternatives have been discussed and questions answered. Patient agrees to proceed with procedure.
[2023-07-26 08:22] VITALS: BP 154/60; PULSE 69; RESP 14; TEMP 36.7; O2SAT 99
--- NOTE | 2023-07-26 08:24 | WPDANESEPPF ---
Anes - Initial Pre Proc Eval Procedure: Operation Date: 07/26/23 09:30 Proposed Procedures p Cystoscopy Bladder Biopsy - Han Kuo MD Date/Time: 07/26/23 08:24 Surgeon: Han Kuo MD Pre Op Diagnosis: Gross Hematuria Patient Data Age: 78 Gender: F Height: 1.7 m Weight: 99.8 kg Allergies Allergy/AdvReac Type Severity Reaction Status Date / Time sulfamethoxazole Allergy Intermediate Rash Verified 07/23/23 10:55 trimethoprim Allergy Intermediate Rash Verified 07/23/23 10:55 Home Medications Medication Instructions Recorded Confirmed Type fluticasone propionate 50 1 spray intranasal DAILY 03/06/23 07/23/23 History mcg/actuation nasal spray,suspension (Flonase Allergy Relief) fluticasone propionate 110 1 puff inhalation Q12H #12 grams 05/03/23 07/23/23 Rx mcg/actuation HFA aerosol inhaler duloxetine 30 mg capsule,delayed 30 mg PO DAILY #90 caps 06/06/23 07/23/23 Rx release atorvastatin 80 mg tablet 80 mg PO DAILY #90 tabs 06/25/23 07/23/23 Rx amlodipine 5 mg-olmesartan 20 mg 1 tablet PO DAILY #90 tabs 07/20/23 07/23/23 Rx tablet acetaminophen 500 mg capsule 2,000 mg PO Q6H PRN Pain 07/23/23 07/23/23 History loratadine 10 mg capsule 10 mg PO DAILY 07/23/23 07/23/23 History Patient hx anesthesia problems: none Family hx anesthesia problems: none Results Review: All pre-operative results and documents have been reviewed as part of the pre-operative evaluation. [facility] Past Medical History Medical History Arthritis Asthma Body mass index (BMI) 35.0-35.9, adult Cataracts, bilateral Diverticulosis Dyslipidemia, goal LDL below 130 Encounter for counseling regarding immunization Hyperlipidemia Insomnia Non morbid obesity due to excess calories Normal stress echocardiogram Paresthesia Post-menopausal Screen for colon cancer Screening for breast cancer Seasonal allergies Spinal stenosis of lumbar region Spinal stenosis, cervical region UTI (urinary tract infection) Weakness of both legs Surgical History Surgical History H/O breast biopsy left breast H/O dilation and curettage H/O skin graft x2 History of hysterectomy History of lumpectomy of right breast x2 Hx of cataract removal with insertion of prosthetic lens Hx of tonsillectomy Family History Family History Father Family history of malignant neoplasm Mother Family history of malignant neoplasm Family history of kidney disease Social History Social History Smoking status: Never smoker Second hand tobacco smoke exposure: No Alcohol intake: former Alcohol use details: occasional Substance use: never Lack of Transportation: No Lack of Food: Never True Current Housing: I Have Housing Concerned About Future Housing: No Difficulty Paying Gas/Electric Bills: No Difficulty Paying for Meds: No Currently Unemployed: No Education: Trade/Vocational Certificate Difficulty w/ Childcare or Family Care: No Living arrangements: with family Additional living arrangements comments: daughter Occupation/Education: retired Gender identity (if verbalized by the patient): Female Sexual Orientation (if Verbalized by the Patient): Straight or Heterosexual Spiritual care concerns: No Anes - Eval Final PreProcedure Day of Procedure 07/26/23 08:24 Patient weight: obese Heart: regular rate and rhythm Lungs: clear to auscultation Airway: Mallampati scale class II Neurological: alert and oriented Last oral intake: >/= 8 hours ASA classification: II Emergent: no Anesthetic plan: proceed Anesthesia type and monitoring: general and standard monitoring Other findings: Pt had stress test 2022 nml, no ischemia. Results Review: All pre-operative results and docu
[2023-07-26] MEDS: LACTATED RINGERS 1,000 ML 30 ML IV CONT ×2 (08:26→10:15)
--- NOTE | 2023-07-26 09:34 | W.PM.PROC2 ---
Procedure Note - Detailed Date of Procedure 07/26/23 Pre-op Diagnosis Gross Hematuria Post-op Diagnosis Same Procedure Performed Cystoscopy, bladder biopsy Surgeon Han Kuo MD Anesthesia General Description of Procedure Patient brought the operative suite where she has prepped draped in routine sterile fashion while in dorsal lithotomy position after the uneventful induction of a general LMA anesthetic. Cystoscopy was undertaken with a 21 F rigid cystoscope bladder neck urethra endoscopically normal. With the exception of the left posterior lateral bladder wall the bladder mucosa is without hyperemia. There was no cresencio intravesical neoplasm and there is certainly no foreign bodies. She has a single orthotopic ureteral orifice bilaterally with clear efflux of urine. In the left lateral wall there was a notable 2-3 cm area of distinct flat hyperemia stone appeared to be frankly a plastic. I obtained cold cup biopsies and cauterized the base with a Bugbee electrode. Bladder was emptied she was taken to recovery room in good condition. Estimated Blood Loss 0 Drains No Pathology Yes Complications No immediate complications Condition Stable Disposition PACU
[2023-07-26 09:37] VITALS: BP 159/79; PULSE 69; RESP 16; TEMP 36.3; O2SAT 100
[2023-07-26 09:50] VITALS: BP 152/74; PULSE 68; RESP 14; O2SAT 100
[2023-07-26] MEDS: fentaNYL CITRATE INJ (*CRX) 100 MCG/2 ML VIAL 25 MCG IV PUSH ×4 (09:55→10:10)
[2023-07-26 10:05] VITALS: BP 134/63; PULSE 66; RESP 16; O2SAT 96
[2023-07-26 10:30] VITALS: BP 142/65; PULSE 68; RESP 16
[2023-07-26] MEDS: oxyCODONE (*CRX) 5 MG/5 ML ORAL SOLN IR PO (10:47)
[2023-07-26 11:00] VITALS: BP 137/59; PULSE 66; RESP 16
== END 2023-07-26 11:20 | disposition home or self-care (01) ==
PROVIDERS: PCP Family Medicine; Visit Provider Urology
PROC: 0TBB8ZX Excision of Bladder, Via Natural or Artificial Opening Endoscopic, Diagnostic (ICD-10-PCS; CPT 52204; principal; 2023-07-26 09:30)
DX: N30.91 Cystitis, unspecified with hematuria (principal); E78.5 Hyperlipidemia, unspecified; J45.909 Unspecified asthma, uncomplicated; Z79.51 Long term (current) use of inhaled steroids; E66.9 Obesity, unspecified; Z68.35 Body mass index [BMI] 35.0-35.9, adult
CPT/HCPCS: 52204; 88108; 88305; 88342; A9270; J1100; J2405; J2704; J3010; J7120

== ENCOUNTER 2023-09-06 10:56 | Day surgery (SDC) | payer MEDICARE, SELFPAY ==
[2023-08-27 13:01] VITALS: BMI 35.9
[2023-08-27 13:47] VITALS: BMI 35.9
--- NOTE | 2023-09-05 14:58 | WPDANESEPPF ---
Anes - Initial Pre Proc Eval Procedure: Operation Date: 09/06/23 13:00 Proposed Procedures p Diagnostic Colonoscopy - Abilio Valdez MD Date/Time: 09/05/23 14:58 Surgeon: bAilio Valdez MD Pre Op Diagnosis: Family history of colon cancer Patient Data Age: 78 Gender: F Height: 1.68 m Weight: 101 kg Allergies Allergy/AdvReac Type Severity Reaction Status Date / Time sulfamethoxazole Allergy Intermediate Rash Verified 09/06/23 12:17 trimethoprim Allergy Intermediate Rash Verified 09/06/23 12:17 Home Medications Medication Instructions Recorded Confirmed Type fluticasone propionate 50 1 spray intranasal DAILY 03/06/23 09/06/23 History mcg/actuation nasal spray,suspension (Flonase Allergy Relief) duloxetine 30 mg capsule,delayed 30 mg PO DAILY #90 caps 06/06/23 09/06/23 Rx release atorvastatin 80 mg tablet 80 mg PO DAILY #90 tabs 06/25/23 09/06/23 Rx amlodipine 5 mg-olmesartan 20 mg 1 tablet PO DAILY #90 tabs 07/20/23 09/06/23 Rx tablet acetaminophen 500 mg capsule 2,000 mg PO Q6H PRN Pain 07/23/23 09/06/23 History loratadine 10 mg capsule 10 mg PO DAILY 07/23/23 09/06/23 History albuterol sulfate 0.63 mg/3 mL 0.63 mg (3 mL) inhalation Q4-6H 08/24/23 09/06/23 Rx solution for nebulization PRN shortness of breath or wheezing #75 mL nebulizer #1 ea 08/24/23 09/06/23 Rx Patient hx anesthesia problems: none Family hx anesthesia problems: none Results Review: All pre-operative results and documents have been reviewed as part of the pre-operative evaluation. [facility] Past Medical History Medical History (Updated 09/06/23 @ 12:27 by Abilio Valdez MD) Arthritis Asthma Body mass index (BMI) 35.0-35.9, adult Cataracts, bilateral Diverticulosis Dyslipidemia, goal LDL below 130 Encounter for counseling regarding immunization Hyperlipidemia Hypertension Insomnia Non morbid obesity due to excess calories Normal stress echocardiogram Paresthesia Post-menopausal Screen for colon cancer Screening for breast cancer Seasonal allergies Spinal stenosis of lumbar region Spinal stenosis, cervical region UTI (urinary tract infection) Weakness of both legs Surgical History Surgical History H/O breast biopsy left breast H/O dilation and curettage H/O skin graft x2 History of hysterectomy History of lumpectomy of right breast x2 Hx of cataract removal with insertion of prosthetic lens Hx of tonsillectomy Family History Family History Father Family history of malignant neoplasm Mother Family history of malignant neoplasm Family history of kidney disease Social History Social History Social History: caffeine none daily Smoking status: Never smoker Second hand tobacco smoke exposure: No Alcohol intake: current Alcohol use details: occasional Substance use: never Substance use type: does not use Lack of Transportation: No Lack of Food: Never True Current Housing: I Have Housing Concerned About Future Housing: No Difficulty Paying Gas/Electric Bills: No Difficulty Paying for Meds: No Currently Unemployed: No Education: Trade/Vocational Certificate Difficulty w/ Childcare or Family Care: No Living arrangements: with family Additional living arrangements comments: daughter Occupation/Education: retired Gender identity (if verbalized by the patient): Female Sexual Orientation (if Verbalized by the Patient): Straight or Heterosexual Spiritual care concerns: No Anes - Eval Final PreProcedure Day of Procedure 09/05/23 14:58 Patient weight: obese Heart: regular rate and rhythm Lungs: clear to auscultation Airway: Mallampati scale class II Neurological: alert and oriented Last oral intake: >/= 8 hours ASA classification: III Emergent: no Anesthetic plan: proceed A
--- NOTE | 2023-09-06 12:26 | PM.HPGS ---
History of Present Illness History of Present Illness Consent: Risks, benefits, and alternatives have been discussed and questions answered. Patient agrees to proceed with procedure. Chief complaint: Family history of colon cancer Narrative: Prem Paredes is a 78 year old female presents for screening colonoscopy. Patient's current S are normal. Patient denies any blood in her stools. Family history is significant her father had colon cancer. Patient's most recent colonoscopy 2015 was unremarkable. Patient presents today for screening colonoscopy. Review of Systems Review of Systems: All systems reviewed & are unremarkable except as noted in HPI and below PMFSH Past Medical History Medical History (Updated 09/06/23 @ 12:27 by Abilio Valdez MD) Arthritis Asthma Body mass index (BMI) 35.0-35.9, adult Cataracts, bilateral Diverticulosis Dyslipidemia, goal LDL below 130 Encounter for counseling regarding immunization Hyperlipidemia Hypertension Insomnia Non morbid obesity due to excess calories Normal stress echocardiogram Paresthesia Post-menopausal Screen for colon cancer Screening for breast cancer Seasonal allergies Spinal stenosis of lumbar region Spinal stenosis, cervical region UTI (urinary tract infection) Weakness of both legs Surgical History Surgical History H/O breast biopsy left breast H/O dilation and curettage H/O skin graft x2 History of hysterectomy History of lumpectomy of right breast x2 Hx of cataract removal with insertion of prosthetic lens Hx of tonsillectomy Family History Family History Father Family history of malignant neoplasm Mother Family history of malignant neoplasm Family history of kidney disease Social History Social History Social History: caffeine none daily Smoking status: Never smoker Second hand tobacco smoke exposure: No Alcohol intake: current Alcohol use details: occasional Substance use: never Substance use type: does not use Lack of Transportation: No Lack of Food: Never True Current Housing: I Have Housing Concerned About Future Housing: No Difficulty Paying Gas/Electric Bills: No Difficulty Paying for Meds: No Currently Unemployed: No Education: Trade/Vocational Certificate Difficulty w/ Childcare or Family Care: No Living arrangements: with family Additional living arrangements comments: daughter Occupation/Education: retired Gender identity (if verbalized by the patient): Female Sexual Orientation (if Verbalized by the Patient): Straight or Heterosexual Spiritual care concerns: No Meds Home Medications and Allergies Home Medications Medication Instructions Recorded Confirmed Type fluticasone propionate 50 1 spray intranasal DAILY 03/06/23 09/06/23 History mcg/actuation nasal spray,suspension (Flonase Allergy Relief) duloxetine 30 mg capsule,delayed 30 mg PO DAILY #90 caps 06/06/23 09/06/23 Rx release atorvastatin 80 mg tablet 80 mg PO DAILY #90 tabs 06/25/23 09/06/23 Rx amlodipine 5 mg-olmesartan 20 mg 1 tablet PO DAILY #90 tabs 07/20/23 09/06/23 Rx tablet acetaminophen 500 mg capsule 2,000 mg PO Q6H PRN Pain 07/23/23 09/06/23 History loratadine 10 mg capsule 10 mg PO DAILY 07/23/23 09/06/23 History albuterol sulfate 0.63 mg/3 mL 0.63 mg (3 mL) inhalation Q4-6H 08/24/23 09/06/23 Rx solution for nebulization PRN shortness of breath or wheezing #75 mL nebulizer #1 ea 08/24/23 09/06/23 Rx Allergies Allergy/AdvReac Type Severity Reaction Status Date / Time sulfamethoxazole Allergy Intermediate Rash Verified 09/06/23 12:17 trimethoprim Allergy Intermediate Rash Verified 09/06/23 12:17 Exam Narrative: Physical exam reveals patient signs stable. HEENT exam is unremarkable. Patient is anicteric. L
[2023-09-06 12:29] VITALS: BP 170/67; PULSE 70; RESP 16; TEMP 36.8; O2SAT 98
[2023-09-06] MEDS: LACTATED RINGERS 1,000 ML 150 ML IV CONT (12:43)
[2023-09-06 14:34] VITALS: BP 158/77; PULSE 66; RESP 14; O2SAT 96
--- NOTE | 2023-09-06 14:42 | WPDANESPN ---
Anes - Prog Note Post-Op Date/Time: 09/06/23 14:42 Cardiovascular status: normal Respiratory status: normal Airway patency: baseline Mental status: baseline Post-Op hydration status: normal Vital Signs: Last Vital Signs Temp 36.8 C 09/06/23 12:29 Pulse 66 09/06/23 14:34 Resp 14 09/06/23 14:34 BP 158/77 H 09/06/23 14:34 Pulse Ox 96 09/06/23 14:34 O2 Del Method Room Air 09/06/23 14:34 Pain Score (VAS): 0 I/O: Intake & Output 09/05/23 09/06/23 09/06/23 23:59 07:59 15:59 Intake Total 500 Balance 500 Post-procedural complaints: none Patient Feedback: Patient satisfied with anesthetic care. Other Findings: Patient vital signs back to baseline. Patient denies nausea and vomiting. Patient's pain under control. Patient OK for discharge.
[2023-09-06 14:44] VITALS: BP 141/89; PULSE 66; RESP 14; O2SAT 98
[2023-09-06 14:54] VITALS: BP 143/75; PULSE 63; RESP 14; O2SAT 100
== END 2023-09-06 14:58 | disposition home or self-care (01) ==
PROVIDERS: PCP Family Medicine; Visit Provider Internal Medicine Gastroenterology
PROC: 0DJD8ZZ Inspection of Lower Intestinal Tract, Via Natural or Artificial Opening Endoscopic (ICD-10-PCS; CPT 45378; principal; 2023-09-06 13:00)
DX: Z80.0 Family history of malignant neoplasm of digestive organs (principal); K64.8 Other hemorrhoids
CPT/HCPCS: 45378

== ENCOUNTER 2024-01-29 15:13 | Outpatient (CLI) | payer MEDICARE, SELFPAY ==
--- NOTE | ~2024-01-29 | MM_ITS ---
EXAMINATION: MM screening arleen BI w sharon HISTORY: Screening TECHNIQUE: Craniocaudal and mediolateral oblique 3-D tomosynthesis images were obtained and synthetic 2-D images were generated. CAD analysis was submitted and interpreted. COMPARISON: No prior mammogram is available for comparison at this institution. BREAST PARENCHYMAL COMPOSITION: Not dense: There are scattered areas of fibroglandular density. FINDINGS: There is no evidence of suspicious mass, calcification, or architectural distortion to sugg est malignancy in either breast. There has been no suspicious interval change. IMPRESSION: 1. No mammographic evidence of malignancy. 2. Recommend routine screening mammography in one year. BI-RADS Category 1: Negative Reviewed, dictated and finalized at location B.
== END 2024-01-29 15:14 | disposition home or self-care (01) ==
LOC: MICIMG 15:14
PROVIDERS: PCP Obstetrics & Gynecology; Visit Provider Family Medicine
DX: Z12.31 Encounter for screening mammogram for malignant neoplasm of breast (principal)
CPT/HCPCS: 77063; 77067

== ENCOUNTER 2024-04-23 14:02 | Outpatient (CLI) | payer MEDICARE, SELFPAY ==
[2024-04-23 19:57] LABS: Vitamin D 25 Hydroxy 13.4 ng/mL
[2024-04-23 20:11] LABS: Thyroid Stimulating Hormone Reflex 0.964 uIU/mL (0.465-4.68)
[2024-04-23 20:29] LABS: Alanine Aminotransferase 23 U/L (6-35); Albumin Level 4.2 g/dL (3.5-5.1); Alkaline Phosphatase 116 U/L (38-126); Anion Gap 4 mmol/L (4-12); Aspartate Amino Transferase 30 U/L (14-36); Bilirubin,Total 0.9 mg/dL (0.2-1.3); Blood Urea Nitrogen 23 mg/dL (7-17); Calcium 9.6 mg/dL (8.4-10.2); Carbon Dioxide 29 mmol/L (22-30); Chloride 104 mmol/L (98-107); Cholesterol 218 mg/dL (0-200); Estimated Glomerular Filt Rate 43; Glucose 87 mg/dL (65-110); HDL Direct 56 mg/dL; Sodium 137 mmol/L (137-145); Triglycerides 177 mg/dL (<150)
[2024-04-23 20:42] LABS: LDL Cholesterol Direct 87 mg/dL
[2024-04-23 22:15] LABS: Hemoglobin A1C 5.9 % (<5.7)
== END 2024-04-23 14:03 | disposition home or self-care (01) ==
LOC: ANHGOSHLAB 14:03
PROVIDERS: PCP Family Medicine; Visit Provider Family Medicine
DX: R73.9 Hyperglycemia, unspecified (principal); I10 Essential (primary) hypertension; E53.8 Deficiency of other specified B group vitamins; E55.9 Vitamin D deficiency, unspecified; E78.5 Hyperlipidemia, unspecified
CPT/HCPCS: 36415; 80053; 80061; 82306; 82607; 83036; 84443

== ENCOUNTER 2024-04-28 08:37 | Outpatient (CLI) | payer MEDICARE, SELFPAY ==
--- NOTE | ~2024-04-28 | XR_ITS ---
XR hand RT min 3V Ordering provider: Gillian Andersen MD History: . M79.643 - Pain in unspecified hand . Comparison: None. FINDINGS: BONES: Fracture at the base of the distal phalanx of the right thumb is noted. JOINT SPACES: Narrowing of the distal interphalangeal joints. Osteoarthritic changes seen in the firs t carpometacarpal. Narrowing of the radiocarpal joint. SOFT TISSUES: Normal. IMPRESSION: Chip fracture at the base of the distal phalanx of the right thumb. Polyarticular osteoarthritic changes. Reviewed, dictated and finalized at location A. E OPERATOR
--- NOTE | ~2024-04-28 | XR_ITS ---
XR hand LT min 3V Ordering provider: Gillian Andersen MD History: . M79.643 - Pain in unspecified hand . Comparison: None. FINDINGS: BONES: No acute fracture or dislocation. JOINT SPACES: Slight narrowing of the distal interphalangeal joints. SOFT TISSUES: Unremarkable. IMPRESSION: No acute osseous abnormality left hand. Polyarticular osteoarthritic changes. Reviewed, dictated and finalized at location A. NG MAKER AND INSTALLER
== END 2024-04-28 08:38 | disposition home or self-care (01) ==
PROVIDERS: PCP Family Medicine; Visit Provider Plastic Surgery
DX: M19.041 Primary osteoarthritis, right hand (principal); M19.042 Primary osteoarthritis, left hand
CPT/HCPCS: 73130

== ENCOUNTER 2024-05-22 08:42 | Outpatient (CLI) | payer MEDICARE, SELFPAY ==
--- OUTSIDE RECORDS SUMMARY | 2024-05-22 08:50 | XMS_ITS | Patient Health Summary ---
Author Organization [facility] Address [address] [address] Care Team Providers Care Bench Press Operator Name Role Phone Pramod Nix MD Primary Care Provider [phone] Note from [facility],non-owned Affiliates and Associated Physician Practices is amultiple site organization consisting of ambulatory clinics and hospital sitesin [place], [place], [place] and [place]. This disclosure is being madepursuant to the Care Everywhere program and may not contain all information available regarding this patient. Last updated 18.[facility] Allergies * Sulfamethoxazole W-Trimethoprim(Rash) -Medium Criticality Medications * Be aware that medications may not be up to date on this document. Alwaysverify current medications with the patient. * triamcinolone acetonide (KENALOG) 0.1 % cream(Started 12/28/2015) Active Problems Problem Noted Date Diagnosed Date Acute atopic conjunctivitis of both eyes 016 Astigmatism of both eyes 12/24/2014 Blepharitis 12/23/2013 Other age-related incipient cataract, unspecifie d eye 12/23/2013 Dry eye syndrome 12/23/2013 Social History Tobacco Use Types Packs/Day Years Used Date Smoking Tobacco: Never Smokeless Tobacco: Never Alcohol Use Standard Drinks/Week Comments Yes 0 (1 standard drink = 0.6 oz pur e alcohol) Sex and Gender Information Value Date Recorded Sex Assigned at Not on file Gender Identity Not on file Sexual Orientation Not on file Last Filed Vital Signs Vital Sign Reading Time Taken Comments Blood Pressure 137/63 03/03/2015 12:40 PM CLOTHES IRONER Pulse 65 03/03/2015 12:40 PM CLOTHES IRONER Temperature 36.1 C (97 F) 03/03/2015 12:40 PM CLOTHES IRONER Respiratory Rate 16 03/03/2015 12:40 PM CLOTHES IRONER Oxygen Saturation 100% 03/03/2015 12:40 PM CLOTHES IRONER Inhaled Oxygen Concentration - - Weight 98.9 kg (218 lb) 03/03/2015 9:57 AM CLOTHES IRONER Height 167.6 cm (5' 6 ) 03/03/2015 9:57 AM CLOTHES IRONER Body Mass Index 35.19 03/03/2015 9:57 AM CLOTHES IRONER Care Teams Bench Press Operator Relationship Specialty Start Date End Date Pramod Nix MD [address] [place] [address] PCP - General 10/22/13
--- OUTSIDE RECORDS SUMMARY | 2024-05-22 08:50 | XMS_ITS | Clinical Summary ---
Author Organization [facility] Address [address] [place] [address] Care Team Providers Care Braid Cutter Name Role Phone Pramod Nix MD Primary Care Provider Source Comments [facility],non-owned Affiliates and Associated Physician Practices is amultiple site organization consisting of ambulatory clinics and hospital sitesin [place], [place], [place] and [place]. This disclosure is being madepursuant to the Care Everywhere program and may not contain all information available regarding this patient. Last updated 18.[facility] Allergies Active Allergy Reactions Criticality Noted Date Comments Sulfamethoxazole W-Trimethoprim Rash Medium 12/2013 Medications * Be aware that medications may not be up to date on this document. Alwaysverify current medications with the patient. Medication Sig Dispensed Refills Start Date End Date Status triamcinolone acetonide (KENALOG) 0.1 % cream 12/28/2015 Active Active Problems Problem Noted Date Diagnosed Date Acute atopic conjunctivitis of both eyes 016 Astigmatism of both eyes 12/24/2014 Blepharitis 12/23/2013 Other age-related incipient cataract, unspecifie d eye 12/23/2013 Dry eye syndrome 12/23/2013 Family History Medical History Relation Name Comments Macular Degeneration Mother Diabetes Neg Hx Glaucoma Neg Hx Relation Name Status Comments Mother Social History Tobacco Use Types Packs/Day Years [...] Comments Blood Pressure 137/63 03/03/2015 12:40 PM MULTI SENSOR OPERATOR Pulse 65 03/03/2015 12:40 PM MULTI SENSOR OPERATOR Temperature 36.1 C (97 F) 03/03/2015 12:40 PM MULTI SENSOR OPERATOR Respiratory Rate 16 03/03/2015 12:40 PM MULTI SENSOR OPERATOR Oxygen Saturation 100% 03/03/2015 12:40 PM MULTI SENSOR OPERATOR Inhaled Oxygen Concentration - - Weight 98.9 kg (218 lb) 03/03/2015 9:57 AM MULTI SENSOR OPERATOR Height 167.6 cm (5' 6 ) 03/03/2015 9:57 AM MULTI SENSOR OPERATOR Body Mass Index 35.19 03/03/2015 9:57 AM MULTI SENSOR OPERATOR Plan of Treatment Health Maintenance Due Date Last Done Comments BONE DENSITY TESTING 1945 HEPATITIS C SCREENING 02/09/1964 DTAP/TDAP/TD VACCINES (1 - Tdap) 1965 PNEUMOCOCCAL VACCINE 50+ (1 of 1 - PCV) 02/14/1996 ZOSTER VACCINE (1 of 2) 02/14/1996 Respiratory Syncytial Virus (RSV) Vaccine Pt: or over 60 yrs (1 - 1-dose 75+ series) 2021 COVID-19 VACCINE ( - 2023-2 5 season) 2023 INFLUENZA VACCINE (#1) 2023 DEPRESSION SCREENING 04/16/2024 MEDICARE AWV CALENDAR YEAR 2024 HEPATITIS B VACCINE Aged Out No longe r eligible based on patient's age to complete this topic HIB VACCINE Aged Out No longer eligi ble based on patient's age to complete this topic HPV VACCINE Aged Out No longer eligi ble based on patient's age to complete this topic MENINGOCOCCAL (Group B) VACCINE Aged Out No longer eligible based on patient's age to complete this topic MENINGOCOCCAL VACCINE Aged Out No darcy honey eligible based on patient's age to complete this topic Care Teams Braid Cutter Relationship Specialty Start Date End Date Pramod Nix MD [address] [place] [address] PCP - General 10/22/13
--- OUTSIDE RECORDS SUMMARY | 2024-05-22 08:50 | XMS_ITS | Clinical Summary ---
Author Organization [facility] Home Care [facility] Address [address] [place] [address] Care Team Providers Care Structural Draftsman Name Role Phone Pramod Nix MD Primary Care Provider [phone] Allergies Active Allergy Reactions Criticality Noted Date Comments Sulfamethoxazole-Trimethoprim Rash High 2013 Medications loratadine (CLARITIN) 10 mg tablet Take 10 mg by mouth daily Active olopatadine (Pataday) 0.2 % ophthalmic solution Pataday 0.2 % eye drops Active tobramycin-dexA METHasone (Tobradex) ophthalmic ointment TobraDex 0.3 %-0.1 % eye ointment Active triamcinolone (KENALOG) 0.1 % cream 12/28/2015 Active atorvastatin (LIPITOR) 80 mg tablet Take 1 tablet (80 mg total) by mouth nightly 30 tablet 11 06/04/2019 Active cephalexin (KEFLEX) 250 mg capsuleIndicati ons:Urinary Tract/Genitouri nary Infection Take 1 capsule (250 mg total) by mouth every 6 (six) hours 15 capsule 06/04/2019 Active Active Problems Problem Noted Date Diagnosed Date Acute pyelonephritis 06/03/2019 Assessment & Plan (06/04/2019 4:50 PM CUSTOMER ACCOUNTS ADVISOR): UA with 3+ LE, +nitrites, UC growing E coli. L>R flank pain. W/ numbness and hyperesthesia of T12-L1 area. daily ceftriaxone () and switched to keflex () to finish 7 day course. Bilateral hip pain and LBP 06/03/2019 Assessment & Plan (06/04/2019 4:49 PM CUSTOMER ACCOUNTS ADVISOR): W/ T12-L1 numbness and allodynia and lower back pain. S/p toradol 15 mg and diazepam 5 mg in the ED, which the patient reports did not help with her symptoms. Final read on MRI showed C3-6 and L4-5 severe spinal stenosis w/ no spinal cord involvement. B12, RPR neg. Discharged w/ tylenol 1g Q6H prn, ibuprofen 800 mg Q8H, lidocaine patches, voltaren gel, home health PT/OT. Transaminitis 06/03/2019 Assessment & Plan (06/03/2019 9:25 AM CUSTOMER ACCOUNTS ADVISOR): Slightly elevated LFTs on admission. No baseline labs available. Bili wnl. May be statin induced. Patient with no risk factors for hepatitis B/C (but none in system). Briefly held statin. - Can consider US if status worsens. Acute atopic conjunctivitis of both eyes 016 Astigmatism of both eyes 12/24/2014 Blepharitis 12/23/2013 Dry eye syndrome 12/23/2013 Other age-related incipient cataract, unspecifie d eye 12/23/2013 Immunizations Name Administration Dates Next Due Hep B Vaccine 05/30/1993 Influenza, Unspecified 01/14/2019 Pneumococcal Conjugate PCV 13 01/11/2015 Pneumococcal Polysaccharide PPV23 09/03/2017 Tdap 09/03/2017 ZOSTER LIVE 03/04/2015 Social History Tobacco Use Types Packs/Day Years Used Date Smoking Tobacco: Never Smokeless Tobacco: Never Comments No Sex and Gender Information Value Date Recorded Sex Assigned at Not on file Legal Sex Female 1:46 AM CUSTOMER ACCOUNTS ADVISOR Gender Identity Not on file Sexual Orientation Not on file Obstetrics History Last Filed Vital Signs Vital Sign Reading Time Taken Comments Blood Pressure 138/62 06/04/2019 2:00 PM CUSTOMER ACCOUNTS ADVISOR Pulse 81 06/04/2019 2:00 PM CUSTOMER ACCOUNTS ADVISOR Temperature 36.8 C (98.2 F) 06/04/2019 5:45 AM CUSTOMER ACCOUNTS ADVISOR Respiratory Rate 18 06/04/2019 12:27 PM CUSTOMER ACCOUNTS ADVISOR Oxygen Saturation 100% 06/04/2019 2:00 PM CUSTOMER ACCOUNTS ADVISOR Inhaled Oxygen Concentration - - Weight 91.4 kg (201 lb 7 oz) 06/02/2019 9:15 AM CUSTOMER ACCOUNTS ADVISOR Height 170.2 cm (5' 7 ) 06/02/2019 9:15 AM CUSTOMER ACCOUNTS ADVISOR Body Mass Index 31.55 06/02/2019 9:15 AM CUSTOMER ACCOUNTS ADVISOR Plan of Treatment Not on file Insurance [facility] Address: [address] [place], [place] [id number] [facility] Address: [address] [address] [place] [address] [place] [address] HMO REF MEDICARE SOLUTIONS Advance Directives For more information, please contact: [phone] Documents on File Type Date Recorded Patient Raw Hide Trimmer Expl anation ADVANCE DIRECTIVE 06/09/2019 9:36 AM POWER OF MANAGER ENVIRONMENTAL HEALTH-FINANCIAL ADVANCE DIRECTIVE 06/09/2019 9:29 AM UZMA HEARD * Full Code (Latest Code Status on File) Date Activated Date Inactivated Comments 06/02/2019 9:04 AM 06/04/2019 10:13 PM Care Teams Structural Draftsman Relationship Specialty Start Date End Date Pramod Nix MD [address] [place] [address] PCP - General 06/02/19
--- OUTSIDE RECORDS SUMMARY | 2024-05-22 08:50 | XMS_ITS | Referral Summary ---
Author Organization [facility] Address [address] [place] [address] Care Team Providers Care Information Assurance Manager Name Role Phone Pramod Nix MD Primary Care Provider [phone] Source Comments [facility],non-owned Affiliates and Associated Physician Practices is amultiple site organization consisting of ambulatory clinics and hospital sitesin [place], [place], [place] and [place]. This disclosure is being madepursuant to the Care Everywhere program and may not contain all information available regarding this patient. Last updated 18.[facility] Allergies Active Allergy Reactions Criticality Noted Date [...] Comments Blood Pressure 137/63 03/03/2015 12:40 PM TRANSFER KNITTER Pulse 65 03/03/2015 12:40 PM TRANSFER KNITTER Temperature 36.1 C (97 F) 03/03/2015 12:40 PM TRANSFER KNITTER Respiratory Rate 16 03/03/2015 12:40 PM TRANSFER KNITTER Oxygen Saturation 100% 03/03/2015 12:40 PM TRANSFER KNITTER Inhaled Oxygen Concentration - - Weight 98.9 kg (218 lb) 03/03/2015 9:57 AM TRANSFER KNITTER Height 167.6 cm (5' 6 ) 03/03/2015 9:57 AM TRANSFER KNITTER Body Mass Index 35.19 03/03/2015 9:57 AM TRANSFER KNITTER Plan of Treatment Not on file Care Teams Information Assurance Manager Relationship Specialty Start Date End Date Pramod Nix MD [address] [place] [address] PCP - General 10/22/13
--- OUTSIDE RECORDS SUMMARY | 2024-05-22 08:50 | XMS_ITS | Referral Summary ---
Author Organization [facility] Home Care [facility] Address [address] [place] [address] Care Team Providers Care Reflow Operator Name Role Phone Pramod Nix MD Primary Care Provider [phone] Allergies Active Allergy Reactions Criticality Noted Date [...] 06/03/2019 Assessment & Plan (06/04/2019 4:50 PM ENVIRONMENTAL COMPLIANCE OFFICER): UA with 3+ LE, +nitrites, UC growing E coli. L>R flank pain. W/ numbness and hyperesthesia of T12-L1 area. daily ceftriaxone () and switched to keflex () to finish 7 day course. Bilateral hip pain and LBP 06/03/2019 Assessment & Plan (06/04/2019 4:49 PM ENVIRONMENTAL COMPLIANCE OFFICER): W/ T12-L1 numbness and allodynia and lower [...] 06/03/2019 Assessment & Plan (06/03/2019 9:25 AM ENVIRONMENTAL COMPLIANCE OFFICER): Slightly elevated LFTs on admission. No baseline [...] on file Legal Sex Female 1:46 AM ENVIRONMENTAL COMPLIANCE OFFICER Gender Identity Not on file Sexual Orientation Not on file Last Filed Vital Signs Vital Sign Reading Time Taken Comments Blood Pressure 138/62 06/04/2019 2:00 PM ENVIRONMENTAL COMPLIANCE OFFICER Pulse 81 06/04/2019 2:00 PM ENVIRONMENTAL COMPLIANCE OFFICER Temperature 36.8 C (98.2 F) 06/04/2019 5:45 AM ENVIRONMENTAL COMPLIANCE OFFICER Respiratory Rate 18 06/04/2019 12:27 PM ENVIRONMENTAL COMPLIANCE OFFICER Oxygen Saturation 100% 06/04/2019 2:00 PM ENVIRONMENTAL COMPLIANCE OFFICER Inhaled Oxygen Concentration - - Weight 91.4 kg (201 lb 7 oz) 06/02/2019 9:15 AM ENVIRONMENTAL COMPLIANCE OFFICER Height 170.2 cm (5' 7 ) 06/02/2019 9:15 AM ENVIRONMENTAL COMPLIANCE OFFICER Body Mass Index 31.55 06/02/2019 9:15 AM ENVIRONMENTAL COMPLIANCE OFFICER Plan of Treatment Not on file [place] [place] [address] HMO REF MEDICARE SOLUTIONS Advance Directives For more information, please contact: [phone] Documents on File Type Date Recorded Patient Packing And Final Assembly Supervisor Expl anation ADVANCE DIRECTIVE 06/09/2019 9:36 AM POWER OF GAMING CASHIER-FINANCIAL ADVANCE DIRECTIVE 06/09/2019 9:29 AM UZMA HEARD * Full Code (Latest Code Status on File) Date Activated Date Inactivated Comments 06/02/2019 9:04 AM 06/04/2019 10:13 PM Care Teams Reflow Operator Relationship Specialty Start Date End Date Pramod Nix MD [address] [place] [address] PCP - General 06/02/19
--- OUTSIDE RECORDS SUMMARY | 2024-05-22 08:50 | XMS_ITS | Clinical Summary ---
Author Organization [facility] Address [facility] [place] [address] Care Team Providers Care Gem Setter Name Role Phone Pramod Nix MD Primary Care Provider [phone] Allergies Active Allergy Reactions Criticality Noted Date Comments Sulfamethoxazole-Trimethoprim Rash Low 2019 Medications atorvastatin 80 MG tablet Take 80 mg by mouth daily. Active loratadine 10 MG tablet Take 10 mg by mouth daily as needed for Allergies. Active oxyCODONE-acetam inophen (PERCOCET) 5-325 MG tabletIndication s:Acute Pain < 3 Day Supply Take 1 tablet by mouth every 6 (six) hours as needed for Pain. Indications : Acute Pain < 3 Day Supply 12 tablet 05/30/2019 Active Social History Tobacco Use Types Packs/Day Years Used Date Smoking Tobacco: Never Assessed Comments No Sex and Gender Information Value Date Recorded Sex Assigned at Not on file Legal Sex Female 9:39 AM COMMISSIONER CONSERVATION OF RESOURCES Gender Identity Not on file Sexual Orientation Not on file Last Filed Vital Signs Vital Sign Reading Time Taken Comments Blood Pressure 144/81 05/30/2019 2:28 PM COMMISSIONER CONSERVATION OF RESOURCES Pulse 68 05/30/2019 2:28 PM COMMISSIONER CONSERVATION OF RESOURCES Temperature 36.5 C (97.7 F) 05/30/2019 9:45 AM COMMISSIONER CONSERVATION OF RESOURCES Respiratory Rate 20 05/30/2019 2:28 PM COMMISSIONER CONSERVATION OF RESOURCES Oxygen Saturation 98% 05/30/2019 2:28 PM COMMISSIONER CONSERVATION OF RESOURCES Inhaled Oxygen Concentration - - Weight 87.1 kg (192 lb) 05/30/2019 9:45 AM COMMISSIONER CONSERVATION OF RESOURCES Height 170.2 cm (5' 7 ) 05/30/2019 9:45 AM COMMISSIONER CONSERVATION OF RESOURCES Body Mass Index 30.07 05/30/2019 9:45 AM COMMISSIONER CONSERVATION OF RESOURCES Plan of Treatment Health Maintenance Due Date Last Done Comments Hepatitis C 02/14/1964 DTaP, Tdap and Td Vaccines ( 1 - Tdap) 1965 Zoster Vaccines (1 of 2) 02/14/1996 Annual Medicare Wellness Visit 2011 Dexa Scan (General) 2011 Pneumococcal Vaccine: 65+ Ye ars (1 of 1 - PCV) 2011 RSV Immunization or 60+ Years (1 - 1-dose 75+ series) 2021 COVID-19 Vaccine (1 - 2023-2 5 season) 2023 Influenza Adult (#1) 2024 Meningococcal B Vaccine Aged Out No l onger eligible based on patient's age to complete this topic Meningococcal Vaccine Aged Out No darcy honey eligible based on patient's age to complete this topic RSV Immunizations Under 20 Months Aged Out No longer eligible based on patient's age to complete this topic Insurance Care Teams Gem Setter Relationship Specialty Start Date End Date Pramod Nix MD [address] [place] [address] PCP - General INTERNAL MEDICINE 05/30/19
[2024-05-22 14:42] LABS: Anion Gap 8 mmol/L (4-12); Blood Urea Nitrogen 23 mg/dL (7-17); Calcium 9.5 mg/dL (8.4-10.2); Carbon Dioxide 29 mmol/L (22-30); Chloride 103 mmol/L (98-107); Estimated Glomerular Filt Rate > 60; Glucose 95 mg/dL (65-110); Potassium 4.9 mmol/L (3.4-5.0); Sodium 140 mmol/L (137-145)
== END 2024-05-22 08:43 | disposition home or self-care (01) ==
LOC: ANHGOSHLAB 08:44
PROVIDERS: PCP Family Medicine; Visit Provider Family Medicine
DX: N28.9 Disorder of kidney and ureter, unspecified (principal)
CPT/HCPCS: 36415; 80048

== ENCOUNTER 2024-06-12 13:53 | Outpatient (CLI) | payer MEDICARE, SELFPAY | END 2024-06-12 13:54 | disposition home or self-care (01) | PROVIDERS: PCP Family Medicine; Visit Provider Nurse Practitioner Family | DX: M16.11 Unilateral primary osteoarthritis, right hip (principal) | CPT/HCPCS: 20610; 77002; J1010 ==

== ENCOUNTER 2024-06-24 15:00 | Outpatient (RCR) | payer MEDICARE, SELFPAY ==
--- NOTE | 2024-05-09 15:30 | OPREHPOC ---
Outpatient Therapy Plan of Care This is a Multidisciplinary Plan of Care that may contain components documented by all disciplines (PT, OT, and ST.) PT Problem 1 PT Problem #1 Knowledge Deficit PT Goal 1 Goal / Goal Update [place] with HEP Target Visit 4 PT Goal 2 Goal / Goal Update Patient will report no pain greater than 2/10 for 2 weeks Target Visit 8 PT Problem 2 PT Problem #2 Impaired Range of Motion PT Goal 1 Goal / Goal Update 1. Patient will improve R hip external rotation motion to 309 degrees 2. Improve R hip abduction ROM to 30 degrees 3. Achieve 5 degrees R hip extension to improve stride Target Visit 8
--- NOTE | 2024-05-09 15:31 | PTOPEVAL1 ---
Assessment and note entered by Rodri lBue, PT Evaluation Information Assessment Status Evaluation ICD-10 Condition Codes (PT) Pain in low back M54.50,Pain in right hip M25.551 Onset 2019 Subjective Information Reports that she started having pain when moving into her new home about 5 years ago. She though t she was having a kidney stone. She has had injections in her low band and upper back and it helped for quite a while, but pain has returned. She is having constant pain that she is trying to manage. She rarely has pain into the legs. Pain is a constant annoying ache. She is sleeping fairly well with pillow between her legs. Reported Pain Level Pain Score 4: Self Report Assessment PT Clinical Summary Patient presents with signs and symptoms consistent with severe hip OA limiting functional mechanics and ROM at this time. Patient had multidirectional pain with all directions limiting exercise intervention at evaluation. Patient has appointment with MD on 05/15/24 and we discussed the likelihood of moving forward with surgery if she were ready due to the structural nature and end feel of her hip pathology. Plan of Care Interventions Gait Training,Manual Therapy,Neuro Re-education, Therapeutic Activities,Therapeutic Exercise PT Services Indicated Yes Treatment Frequency and 2x/week for 8 visits should patient choose to Duration forgo surgery These treatments will address the objective and functional deficits as defined above. The patient will be advanced safely and appropriately in order for the patient to progress towards his/her prior level of function. Additional exercises will be introduced and as well as a comprehensive home exercise program upon discharge, if needed, ?to ensure carryover of functional gains achieved in the clinic. This treatment plan has been reviewed and agreement upon by the patient.
--- NOTE | 2024-05-12 16:09 | OTOPEVAL1 ---
Assessment and note entered by John Navarrete, GEORGE/Yaakov, CHT OT Evaluation Information 05/12/24 Assessment Status Evaluation Diagnosis M79.643 ICD-10 Condition Codes (OT) Pain in right hand M79.641,Pain in left hand M79. 642 Subjective Information Patient presents with bilateral hand pain. She comes with dx of bilateral multiple triggering fingers/tenosynovitis s/p injections to bilateral carpal tunnel. She also has dx of right CMC OA. She is left handed. 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 She reports her worse trigger finger is her left middle finger, reporting she can hardly bend that finger in the morning and throughout the day she is able to use it more, however it catches any time she makes a fist and this is painful. Right thumb CMC joint she reports constant pain and that this pain can get severe with pinching, gripping, etc. Difficulties with lifting plates and pans at work. Pain and difficulty with opening jars, mopping, and carrying bags. Assessment OT Clinical Summary Patient referred to OT with bilateral hand pain - right 1st CMC OA and left middle finger trigger finger. She states most of her other fingers feel like they are in the beginning stages of triggering and that the injection has helped these . Today a custom hand based thumb spica was fabricated for the left thumb and she appears to function well with it donned, allowing for opposition and functional pinching with digits II and III. Due to time constraints we were unable to address the trigger finger. Continued follow up indicated for splinting for the trigger finger, HEP instruction for tendon glides, continued education on joint protection techniques, and gentle strengthening to facilitate optimal functional use of bilateral hands. Plan of Care Interventions Therapeutic Exercise,Manual Therapy,Therapeutic Activities,Hot Pack/Cold Pack,Self-Care/Home Management,Check Out for Orthotic/Prosthetic, Ultrasound,Paraffin OT Services Indicated Yes Treatment Frequency and 1-2x/week for 8 visits Duration These treatments will address the objective and functional deficits as defined above. The patient will be advanced safely and appropriately in order for the patient to progress towards his/her prior level of function. Additional exercises will be introduced and as well as a comprehensive home exercise program upon discharge, if needed, ?to ensure carryover of functional gains achieved in the clinic. This treatment plan has been reviewed and agreement upon by the patient.
--- NOTE | 2024-05-12 16:09 | OPREHPOC ---
Outpatient Therapy Plan of Care This is a Multidisciplinary Plan of Care that may contain components documented by all disciplines (PT, OT, and ST.) PT Problem 1 PT Problem #1 Knowledge Deficit PT Goal 1 Goal / Goal Update [place] with HEP Target Visit 4 PT Goal 2 Goal / Goal Update Patient will report no pain greater than 2/10 for 2 weeks Target Visit 8 PT Problem 2 PT Problem #2 Impaired Range of Motion PT Goal 1 Goal / Goal Update 1. Patient will improve R hip external rotation motion to 309 degrees 2. Improve R hip abduction ROM to 30 degrees 3. Achieve 5 degrees R hip extension to improve stride Target Visit 8 OT Problem 1 OT Problem #1 Knowledge Deficit OT Goal 1 Goal / Goal Update Patient to be independent with instructed materials. Target Visit 8 OT Problem 2 OT Problem #2 Pain OT Goal 1 Goal / Goal Update -Patient to report reduced (R) thumb pain to 0/10 at rest and 3/10 at worst -Patient to report reduced (L) middle finger trigger finger pain to less than 5/10 upon waking up in the morning. Target Visit 8 OT Problem 3 OT Problem #3 Impaired Flexibility OT Goal 1 Goal / Goal Update - Patient to be able to make a fist without triggering in the left middle finger. Target Visit 8 OT Problem 4 OT Problem #4 Impaired Strength OT Goal 1 Goal / Goal Update - Patient to be able to progress to bilateral hand strengthening with banda putty x5 minutes without pain, triggering Target Visit 8
--- NOTE | 2024-06-10 10:10 | PTOPDC ---
Assessment and note entered by Marah Ricardo, PT, DPT Evaluation Information Assessment Status Discharge - Pt Not Present ICD-10 Condition Codes (PT) Pain in low back M54.50,Pain in right hip M25.551 Onset 2019 Subjective Information Pt called and states she would like to be discharged from therapy services at this time. She states she received an injection and would like to see if this helps. States therapy is too painful at this time. Assessment PT Clinical Summary Pt was evaluated on 05/09/24 and was issued an HEP to complete. She did not return for additional visits.
--- NOTE | 2024-06-24 15:49 | OTOPDC ---
Assessment and note entered by John Navarrete, OTR/Yaakov, CHT OT D/C Summary 06/24/24 Diagnosis M79.643 ICD-10 Condition Codes (OT) Pain in right hand M79.641,Pain in left hand M79. 642 Subjective Information -Patient reports progress in the right thumb. She reports less pain and improved functional use. 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 -Patient reports the left middle finger trigger finger continues to give her issues. She continues to have catching anytime she makes a fist, but does note that the catching isn't as painful as it used to be. 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 She had made progress with reduced pain and improved functional use of her right thumb. Today she is reporting no thumb pain and experiencing no pain in the last week. The left middle finger continues to trigger with active flexion. She is having less pain with the catching , but overall no functional changes in the left hand. Reviewed HEP - she is independent with all materials. Plan to D/C today with HEP. Patient to follow up with Dr. Andersen for the right trigger finger in ~6 weeks. Plan of Care OT Services Indicated No
== END 2024-07-30 09:47 | disposition home or self-care (01) ==
LOC: ANHGOSHOT 15:00
PROVIDERS: PCP Family Medicine; Visit Provider Family Medicine
DX: M79.643 Pain in unspecified hand (principal); M54.50 Low back pain, unspecified; M25.551 Pain in right hip
CPT/HCPCS: 97018; 97035; 97110; 97140; 97161; 97165; L3913; L3933

== ENCOUNTER 2024-09-01 15:51 | Outpatient (CLI) | payer MEDICARE, SELFPAY ==
--- OUTSIDE RECORDS SUMMARY | 2024-09-01 15:55 | XMS_ITS | Clinical Summary ---
Author Organization [facility] Address [address] [facility] [place] [address] Care Team Providers Care Survey Technologist Name Role Phone Pramod Nix MD Primary Care Provider [phone] Source Comments [facility],non-owned Affiliates and Associated Physician Practices is amultiple site organization consisting of ambulatory clinics and hospital sitesin [place], [place], [place] and [place]. This disclosure is being madepursuant to the Care Everywhere program and may not contain all information available regarding this patient. Last updated 18.[facility] Allergies Active Allergy Reactions Criticality Noted Date Comments Sulfamethoxazole W-Trimethoprim Rash Medium 12/2013 Medications * Be aware that medications may not be up to date on this document. Alwaysverify current medications with the patient. triamcinolone acetonide (KENALOG) 0.1 % cream 12/28/2015 [...] drink = 0.6 oz pur e alcohol) Comments Unknown Sex and Gender Information Value Date Recorded Sex Assigned at Not on file Legal Sex Female 5:50 PM UTILITY HELICOPTER REPAIRER Gender Identity Not on file Sexual Orientation Not on file Last Filed Vital Signs Vital Sign Reading Time Taken Comments Blood Pressure 137/63 03/03/2015 12:40 PM UTILITY HELICOPTER REPAIRER Pulse 65 03/03/2015 12:40 PM UTILITY HELICOPTER REPAIRER Temperature 36.1 C (97 F) 03/03/2015 12:40 PM UTILITY HELICOPTER REPAIRER Respiratory Rate 16 03/03/2015 12:40 PM UTILITY HELICOPTER REPAIRER Oxygen Saturation 100% 03/03/2015 12:40 PM UTILITY HELICOPTER REPAIRER Inhaled Oxygen Concentration - - Weight 98.9 kg (218 lb) 03/03/2015 9:57 AM UTILITY HELICOPTER REPAIRER Height 167.6 cm (5' 6 ) 03/03/2015 9:57 AM UTILITY HELICOPTER REPAIRER Body Mass Index 35.19 03/03/2015 9:57 AM UTILITY HELICOPTER REPAIRER Plan of Treatment Health Maintenance Due Date Last Done Comments BONE DENSITY TESTING 1945 HEPATITIS C SCREENING 02/09/1964 DTAP/TDAP/TD VACCINES (1 - Tdap) 1965 PNEUMOCOCCAL VACCINE 50+ (1 of 1 - PCV) 02/14/1996 ZOSTER VACCINE (1 of 2) 02/14/1996 Respiratory Syncytial Virus (RSV) Vaccine Pt: or over 60 yrs (1 - 1-dose 75+ series) 2021 COVID-19 VACCINE (2023-2 5 season) 2023 DEPRESSION SCREENING 04/16/2024 MEDICARE AWV CALENDAR YEAR 2024 INFLUENZA VACCINE (Season Ended) 2024 HEPATITIS B VACCINE Aged Out No longe r eligible based on patient's age to complete this topic HIB VACCINE Aged Out No longer eligi ble based on patient's age to complete this topic HPV VACCINE Aged Out No longer eligi ble based on patient's age to complete this topic MENINGOCOCCAL (Group B) VACC INE SHARED DECISION-MAKING Aged Out No longer eligibl e based on patient's age to complete this topic MENINGOCOCCAL GROUPS A/C/Y/W VACCINE Aged Out No longer eligible b ased on patient's age to complete this topic Insurance SELF PAY NO INSURANCE Member Subscriber Plan / Payer (Ef fective for All Dates) Name:Vignesh Henry Member ID:Not on file Relation to Subscriber:Not on file Name:VIGNESH HENRY Subscriber ID:Not on file Address: [address] [place] [address] Payer ID:Not on file Group ID:Not on file Type:Self Pay Address: [facility] MANAGED MEDICARE ADV SELF PAY NO INSURANCE Member Subscriber Plan / Payer (Ef fective for All Dates) Name:Vignesh Henry Member ID:Not on file Relation to Subscriber:Not on file Name:VIGNESH HENRY Subscriber ID:Not on file Address: [address] [place] [address] Payer ID:Not on file Group ID:Not on file Type:Self Pay Address: [facility] MANAGED MEDICARE ADV SELF PAY NO INSURANCE Member Subscriber Plan / Payer (Ef fective for All Dates) Name:Vignesh Henry Member ID:Not on file Relation to Subscriber:Not on file Name:VIGNESH HENRY Subscriber ID:Not on file Address: [address] [place] [address] Payer ID:Not on file Group ID:Not on file Type:Self Pay Address: [place], [place] [employer] MANAGED MEDICARE ADV Care Teams Survey Technologist Relationship Specialty Start Date End Date Pramod Nix MD [address] [place] [address] PCP - General 10/22/13
--- OUTSIDE RECORDS SUMMARY | 2024-09-01 15:55 | XMS_ITS | Clinical Summary ---
Author Organization [facility] Home Care [facility] Address [address] [place] [address] Care Team Providers Care Compressed Gases Tester Name Role Phone Pramod Nix MD Primary Care Provider [phone] Allergies Active Allergy Reactions Criticality Noted Date [...] 06/03/2019 Assessment & Plan (06/04/2019 4:50 PM ASSISTANT IMPORT MANAGER): UA with 3+ LE, +nitrites, UC growing E coli. L>R flank pain. W/ numbness and hyperesthesia of T12-L1 area. daily ceftriaxone () and switched to keflex () to finish 7 day course. Bilateral hip pain and LBP 06/03/2019 Assessment & Plan (06/04/2019 4:49 PM ASSISTANT IMPORT MANAGER): W/ T12-L1 numbness and allodynia and lower [...] 06/03/2019 Assessment & Plan (06/03/2019 9:25 AM ASSISTANT IMPORT MANAGER): Slightly elevated LFTs on admission. No baseline [...] incipient cataract, unspecifie d eye 12/23/2013 Immunizations Immunization Administration Dates Next Due Hep B Vaccine 05/30/1993 Influenza, Unspecified 01/14/2019 Pneumococcal Conjugate PCV 13 01/11/2015 Pneumococcal Polysaccharide PPV23 09/03/2017 Tdap 09/03/2017 ZOSTER LIVE 03/04/2015 Social History Tobacco Use Types Packs/Day Years Used Date Smoking Tobacco: Never Smokeless Tobacco: Never Comments No Sex and Gender Information Value Date Recorded Sex Assigned at Not on file Legal Sex Female 1:46 AM ASSISTANT IMPORT MANAGER Gender Identity Not on file Sexual Orientation Not on file Obstetrics History Last Filed Vital Signs Vital Sign Reading Time Taken Comments Blood Pressure 138/62 06/04/2019 2:00 PM ASSISTANT IMPORT MANAGER Pulse 81 06/04/2019 2:00 PM ASSISTANT IMPORT MANAGER Temperature 36.8 C (98.2 F) 06/04/2019 5:45 AM ASSISTANT IMPORT MANAGER Respiratory Rate 18 06/04/2019 12:27 PM ASSISTANT IMPORT MANAGER Oxygen Saturation 100% 06/04/2019 2:00 PM ASSISTANT IMPORT MANAGER Inhaled Oxygen Concentration - - Weight 91.4 kg (201 lb 7 oz) 06/02/2019 9:15 AM ASSISTANT IMPORT MANAGER Height 170.2 cm (5' 7 ) 06/02/2019 9:15 AM ASSISTANT IMPORT MANAGER Body Mass Index 31.55 06/02/2019 9:15 AM ASSISTANT IMPORT MANAGER Plan of Treatment Not on file Insurance [facility] Address: [address] [place], [place] [address] [facility] Address: [address] [address] [place] [address] [place] [address] HMO REF [facility] MEDICARE ADVANTAGE Advance Directives For more information, please contact: [phone] Documents on File Type Date Recorded Patient Electric Motor Repairing Supervisor Expl anation ADVANCE DIRECTIVE 06/09/2019 9:36 AM POWER OF NAVAL AIRCREWMAN MECHANICAL-FINANCIAL ADVANCE DIRECTIVE 06/09/2019 9:29 AM UZMA HEARD * Full Code (Latest Code Status on File) Date Activated Date Inactivated Comments 06/02/2019 9:04 AM 06/04/2019 10:13 PM Care Teams Compressed Gases Tester Relationship Specialty Start Date End Date Pramod Nix MD [address] [place] [address] PCP - General 06/02/19
--- OUTSIDE RECORDS SUMMARY | 2024-09-01 15:55 | XMS_ITS | Referral Summary ---
Author Organization [facility] Home Care [facility] Address [address] [place] [address] Care Team Providers Care Roll Tender Name Role Phone Pramod Nix MD Primary Care Provider [phone] Allergies Active Allergy Reactions Criticality Noted Date [...] 06/03/2019 Assessment & Plan (06/04/2019 4:50 PM PROVIDER RELATIONS MANAGER): UA with 3+ LE, +nitrites, UC growing E coli. L>R flank pain. W/ numbness and hyperesthesia of T12-L1 area. daily ceftriaxone () and switched to keflex () to finish 7 day course. Bilateral hip pain and LBP 06/03/2019 Assessment & Plan (06/04/2019 4:49 PM PROVIDER RELATIONS MANAGER): W/ T12-L1 numbness and allodynia and [...] 06/03/2019 Assessment & Plan (06/03/2019 9:25 AM PROVIDER RELATIONS MANAGER): Slightly elevated LFTs on admission. No [...] on file Legal Sex Female 1:46 AM PROVIDER RELATIONS MANAGER Gender Identity Not on file Sexual Orientation Not on file Last Filed Vital Signs Vital Sign Reading Time Taken Comments Blood Pressure 138/62 06/04/2019 2:00 PM PROVIDER RELATIONS MANAGER Pulse 81 06/04/2019 2:00 PM PROVIDER RELATIONS MANAGER Temperature 36.8 C (98.2 F) 06/04/2019 5:45 AM PROVIDER RELATIONS MANAGER Respiratory Rate 18 06/04/2019 12:27 PM PROVIDER RELATIONS MANAGER Oxygen Saturation 100% 06/04/2019 2:00 PM PROVIDER RELATIONS MANAGER Inhaled Oxygen Concentration - - Weight 91.4 kg (201 lb 7 oz) 06/02/2019 9:15 AM PROVIDER RELATIONS MANAGER Height 170.2 cm (5' 7 ) 06/02/2019 9:15 AM PROVIDER RELATIONS MANAGER Body Mass Index 31.55 06/02/2019 9:15 AM PROVIDER RELATIONS MANAGER Plan of Treatment Not on file Insurance [facility] Address: [address] [place] [address] [facility] Address: [address] [address] [place] [address] [place] [address] [address] [place] [address] MEDICARE ADVANTAGE [facility] Address: [address] [address] [place] [address] Advance Directives For more information, please contact: [phone] Documents on File Type Date Recorded Patient Schedule Maker Expl anation ADVANCE DIRECTIVE 06/09/2019 9:36 AM POWER OF PARCEL CONTRACTOR-FINANCIAL ADVANCE DIRECTIVE 06/09/2019 9:29 AM UZMA EHARD * Full Code (Latest Code Status on File) Date Activated Date Inactivated Comments 06/02/2019 9:04 AM 06/04/2019 10:13 PM Care Teams Roll Tender Relationship Specialty Start Date End Date Pramod Nix MD [address] [place] [address] PCP - General 06/02/19
--- OUTSIDE RECORDS SUMMARY | 2024-09-01 15:55 | XMS_ITS | Clinical Summary ---
Author Organization [facility] Address [facility] [place] [address] Care Team Providers Care Steam Clean Machine Operator Name Role Phone Pramod Nix MD Primary Care Provider [phone]- [phone] Allergies Active Allergy Reactions Criticality Noted Date [...] on file Legal Sex Female 9:39 AM CHILDRENS CLUB ATTENDANT Gender Identity Not on file Sexual Orientation Not on file Last Filed Vital Signs Vital Sign Reading Time Taken Comments Blood Pressure 144/81 05/30/2019 2:28 PM CHILDRENS CLUB ATTENDANT Pulse 68 05/30/2019 2:28 PM CHILDRENS CLUB ATTENDANT Temperature 36.5 C (97.7 F) 05/30/2019 9:45 AM CHILDRENS CLUB ATTENDANT Respiratory Rate 20 05/30/2019 2:28 PM CHILDRENS CLUB ATTENDANT Oxygen Saturation 98% 05/30/2019 2:28 PM CHILDRENS CLUB ATTENDANT Inhaled Oxygen Concentration - - Weight 87.1 kg (192 lb) 05/30/2019 9:45 AM CHILDRENS CLUB ATTENDANT Height 170.2 cm (5' 7 ) 05/30/2019 9:45 AM CHILDRENS CLUB ATTENDANT Body Mass Index 30.07 05/30/2019 9:45 AM CHILDRENS CLUB ATTENDANT Plan of Treatment Health Maintenance Due Date Last Done Comments Hepatitis C 02/14/1963 DTaP, Tdap and Td Vaccines ( 1 - Tdap) 1965 Pneumococcal Vaccine: 50+ Ye ars (1 of 1 - PCV) 02/14/1996 Zoster Vaccines (1 of 2) 02/14/1996 Annual Medicare Wellness Visit 2011 Dexa Scan (General) 2011 RSV Immunization or 60+ Years (1 - 1-dose 75+ series) 2021 COVID-19 Vaccine (1 - 2023-2 5 season) 2023 Meningococcal B Vaccine Aged Out No l onger eligible based on patient's age to complete this topic Meningococcal Vaccine Aged Out No darcy honey eligible based on patient's age to complete this topic RSV Immunizations Under 20 Months Aged Out No longer eligible based on patient's age to complete this topic Insurance Care Teams Steam Clean Machine Operator Relationship Specialty Start Date End Date Pramod Nix MD [address] [place] [address] PCP - General INTERNAL MEDICINE 05/30/19
[2024-09-01 20:15] LABS: Basophils Absolute Auto 0.1 K/mm3 (0.0-0.1); Basophils Percent Auto 0.5 % (0.2-1.2); Eosinophils Absolute Auto 0.2 K/mm3 (0-0.3); Eosinophils Percent Auto 1.5 % (0-4.4); Hematocrit 45.4 % (37.0-47.0); Hemoglobin 14.1 g/dL (12.0-15.0); Immature Granulocyte Absolute 0.07 K/mm3 (0.00-0.031); Immature Granulocyte Percent A 0.6 % (0-0.5); Lymphocytes Absolute Auto 2.61 K/mm3 (0.9-3.2); Lymphocytes Percent Auto 23.3 % (18.3-44.2); Mean Corpuscular HGB Conc 31.1 g/dl (32-36); Mean Corpuscular Hemoglobin 28.2 pg (26-34); Mean Corpuscular Volume 90.8 fl (80-100); Mean Platelet Volume 10.2 fl (7.4-10.4); Monocytes Absolute Auto 0.8 K/mm3 (0.1-0.6); Monocytes Percent Auto 6.8 % (2.6-8.5); Neutrophils Absolute Auto 7.5 K/mm3 (1.3-6.7); Neutrophils Percent Auto 67.3 % (45.5-73.1); Platelet Count Result 309 k/mm3 (150-375); Red Cell Distribution Width 14.7 % (11.5-14.5); White Blood Count 11.2 K/mm3 (4.5-10.0)
[2024-09-01 20:36] LABS: Vitamin D 25 Hydroxy 39.2 ng/mL
[2024-09-01 20:49] LABS: Thyroid Stimulating Hormone Reflex 0.687 uIU/mL (0.465-4.68)
[2024-09-01 23:16] LABS: Alanine Aminotransferase 26 U/L (6-35); Albumin Level 4.6 g/dL (3.5-5.1); Alkaline Phosphatase 90 U/L (38-126); Anion Gap 8 mmol/L (4-12); Aspartate Amino Transferase 32 U/L (14-36); Bilirubin,Total 1.1 mg/dL (0.2-1.3); Blood Urea Nitrogen 15 mg/dL (7-17); Calcium 9.5 mg/dL (8.4-10.2); Carbon Dioxide 27 mmol/L (22-30); Chloride 103 mmol/L (98-107); Cholesterol 177 mg/dL (0-200); Estimated Glomerular Filt Rate > 60; Glucose 106 mg/dL (65-110); HDL Direct 53 mg/dL; Potassium 4.6 mmol/L (3.4-5.0); Sodium 138 mmol/L (137-145); Triglycerides 199 mg/dL (<150)
[2024-09-01 23:27] LABS: LDL Cholesterol Direct 56 mg/dL
[2024-09-02 00:43] LABS: Hemoglobin A1C 5.5 % (<5.7)
== END 2024-09-01 15:52 | disposition home or self-care (01) ==
LOC: ANHGOSHLAB 15:53
PROVIDERS: PCP Family Medicine; Visit Provider Family Medicine
DX: E53.8 Deficiency of other specified B group vitamins (principal); I10 Essential (primary) hypertension; Z00.00 Encounter for general adult medical examination without abnormal findings; E55.9 Vitamin D deficiency, unspecified; R73.9 Hyperglycemia, unspecified; R73.03 Prediabetes; E78.5 Hyperlipidemia, unspecified
CPT/HCPCS: 36415; 80053; 80061; 82306; 82607; 83036; 84443; 85025

== ENCOUNTER 2025-01-30 10:27 | Outpatient (CLI) | payer MEDICARE, SELFPAY ==
--- NOTE | ~2025-01-30 | DEXA_ITS ---
Bone Density Report Name: VIGNESH HENRY Age: 79 Sex: Female Ethnicity: White Date of : 1945 Indication: postmenopausal; screening for osteoporosis; height loss; asthma or emphysema; hysterectomy; Referring Provider: Shaw Mulligan Study: Bone densitometry was performed. Exam Date: January 30, 2025 Accession number: [id number] Bone Density: Region BMD T-score Z-score Classification AP Spine(L1-L4) 0.950 -0.9 1.7 Normal Femoral Neck (Left) 0.635 -1.9 0.3 Osteopenia Total Hip (Left) 0.892 -0.4 1.6 Normal Femoral Neck (Right) 0.768 -0.7 1.5 Normal Total Hip (Right) 0.897 -0.4 1.6 Normal Total Hip Mean 0.895 -0.4 1.6 Normal World Health Organization criteria for BMD impression classify patients as: Normal (T-score at or above -1.0), Osteopenia (T-score between -1.0 and -2.5), or Osteoporosis (T-score at or below -2.5). 10-year Fracture Risk(1): Major Osteoporotic Fracture 14% Hip Fracture 3.6% Reported Risk Factors: [place] (), Neck BMD=0.635, BMI=36.5 (1) FRAX(R) Version 3.08. Fracture probability calculated for an untreated patient. Fracture probability may be lower if the patient has received treatment. Previous Exams: -- Region Exam Age BMD T-score BMD Change BMD Change Date g/cm2 vs Baseline vs Previous -- AP Spine (L1-L4) 01/30/2025 79 0.950 -0.9 3.6%# -2.8%# 07/16/2017 72 0.977 -0.6 6.5%# 6.5%# 06/14/2007 62 0.917 -1.2 Total Hip(Left) 01/30/2025 79 0.892 -0.4 10.4%# 0.6%# 07/16/2017 72 0.887 -0.4 9.8%# 9.8%# 06/14/2007 62 0.808 -1.1 Total Hip(Right) 01/30/2025 79 0.897 -0.4 3.8%# -3.9%# 07/16/2017 72 0.933 -0.1 8.0%# 8.0%# 06/14/2007 62 0.865 -0.6 -- *Denotes significance at 95% confidence level, LSC for AP Spine = 0.022 g/cm2, LSC for Total Hip = 0.027 g/cm2 # Denotes dissimilar scan types or analysis methods Clinical Information Provided by Patient: Has used the following medications: Vitamin D Has the following medical conditions: Asthma or Emphysema, Hysterectomy Patient maximum height was 67 Menopause Age: 36 Drinks caffeinated beverages Onset of menses at age 13 Number of children 4 Impression: The patient has low bone mass, based on the Left Femoral Neck T-score. The patient has an estimated ten-year risk of hip fracture of 3.6% and an estimated ten-year risk of major fracture of 14%, based on the WHO FRAX algorithm. Unable to evaluate interval change due to the use of different scan modes. Discussion: BONE DENSITY IS LOW AT ONE OR MORE SKELETAL SITES. THE PATIENT'S BMD AND CLINICAL RISK FACTORS CONTRIBUTE TO THIS PATIENT'S INCREASED RISK OF FRACTURE. This patient's lowest T-score is low at one or more skeletal sites. It meets the World Health Organization's (WHO) criteria for ?low bone mass? (T-score between -1.0 and -2.5). The patient's 10-year risk of hip fracture as calculated by FRAX exceeds the threshold where pharmacological therapy is recommended by the National Osteoporosis Foundation (NOF). However, all treatment decisions require clinical judgment and consideration of individual patient factors, including patient preferences, comorbidities, previous drug use, risk factors not captured in the FRAX model (e.g., frailty, falls, vitamin D deficiency, increased bone turnover, interval significant decline in bone density) and possible under or overestimation of fracture risk by FRAX. The patient should follow a healthful lifestyle (good nutrition with adequate calcium and vitamin D, and appropriate weight-bearing exercise). Follow-Up: Consider a repeat BMD and Vertebral Fracture Assessment (VFA) exam in 2 years or sooner if medically necessary, to reassess this patient's status. Reported by: WILLA on 01/30/2025 11:11:00 AM. Reviewed, dictated and finalized at location A.
== END 2025-01-30 10:28 | disposition home or self-care (01) ==
LOC: MICIMG 10:28
PROVIDERS: PCP Family Medicine; Visit Provider Family Medicine
DX: M85.852 Other specified disorders of bone density and structure, left thigh (principal); Z78.0 Asymptomatic menopausal state
CPT/HCPCS: 77080

== ENCOUNTER 2025-01-30 10:30 | Outpatient (CLI) | payer MEDICARE, SELFPAY ==
--- NOTE | ~2025-01-30 | MM_ITS ---
EXAMINATION: MM screening arleen BI w sharon HISTORY: Screening TECHNIQUE: Craniocaudal and mediolateral oblique 3-D tomosynthesis images were obtained and synthetic 2-D images were generated. CAD analysis was submitted and interpreted. COMPARISON: 01/26/2023 BREAST PARENCHYMAL COMPOSITION: The breasts are heterogeneously dense, which may obscure small masses. FINDINGS: There is no evidence of suspicious mass, calcification, or architectural distortion to suggest malignancy. There has been no suspicious interval change. IMPRESSION: 1. No mammographic evidence of malignancy. Recommend routine screening mammography in one year. BI-RADS Category 2: Benign finding(s) Reviewed, dictated and finalized at location Q. IMPRESSION: 1. No mammographic evidence of malignancy. Recommend routine screening mammogra phy in one year. BI-RADS Category 2: Benign finding(s)
== END 2025-01-30 10:31 | disposition home or self-care (01) ==
LOC: MICIMG 10:30
PROVIDERS: PCP Family Medicine; Visit Provider Student in an Organized Health Care Education/Training Program
DX: Z12.31 Encounter for screening mammogram for malignant neoplasm of breast (principal)
CPT/HCPCS: 77063; 77067

== ENCOUNTER 2025-02-19 14:16 | Outpatient (CLI) | payer MEDICARE, SELFPAY ==
--- NOTE | 2025-02-19 14:45 | ECG_ITS ---
Test Date: 2025-02-19 14:57:21 Measurements Intervals [place] Rate: 72 P: 27 LA: 148 QRS: 26 QRSD: 87 T: 38 QT: 386 QTc: 425 Interpretive Statements SINUS RHYTHM No previous ECG available for comparison Electronically Signed On 02-19-2025 15:01:51 ROUTE CARRIER by Pedro Luis Hare M.D.
[2025-02-19 14:59] LABS: Hematocrit 43.4 % (37.0-47.0); Hemoglobin 13.7 g/dL (12.0-15.0); Immature Granulocyte Percent A 0.7 % (0-0.5); Lymphocytes Absolute Auto 2.75 K/mm3 (0.9-3.2); Mean Corpuscular HGB Conc 31.6 g/dl (32-36); Mean Corpuscular Hemoglobin 27.7 pg (26-34); Mean Corpuscular Volume 87.9 fl (80-100); Nucleated Red Blood Cells Absolute Auto 0.000 K/mm3 (0.0-0.012); Nucleated Red Blood Cells Perc 0.0 % (0.0-0.2); Platelet Count Result 308 k/mm3 (150-375); Red Blood Count 4.94 M/mm3 (4.2-5.4); White Blood Count 11.5 K/mm3 (4.5-10.0)
[2025-02-19 15:12] LABS: Anion Gap 9 mmol/L (4-12); Blood Urea Nitrogen 16 mg/dL (7-17); Calcium 9.6 mg/dL (8.4-10.2); Carbon Dioxide 22 mmol/L (22-30); Chloride 104 mmol/L (98-107); Estimated Glomerular Filt Rate > 60; Glucose 108 mg/dL (65-110); Potassium 4.4 mmol/L (3.4-5.0); Sodium 135 mmol/L (137-145)
[2025-02-19 18:08] LABS: Add Urine Microscopic? YES; Appearance Urine Clear (Clear); Glucose Urine UA Negative (Negative); Leukocyte Esterase Ur Trace LEU/UL (Negative); Nitrate Urine Negative (Negative); Non Pathogenic Casts 0-2; Specific Grav Ur 1.008 (1.001-1.035)
--- OUTSIDE RECORDS SUMMARY | 2025-02-19 20:30 | XMS_ITS | Clinical Summary ---
Author Organization [facility] [employer] Address [address] [place] [address] Care Team Providers Care Director Social Welfare Name Role Phone Pramod Nix MD Primary Care Provider Source Comments [facility] [employer],non-owned Affiliates and Associated Physician Practices is amultiple site organization consisting of ambulatory clinics and hospital sitesin [place], [place], [place] and [place]. This disclosure is being madepursuant to the Care Everywhere program and may not contain all information available regarding this patient. Last updated 18.[facility] [employer] Allergies Active Allergy Reactions Criticality Noted Date [...] on file Legal Sex Female 5:50 PM ROLL PRESS OPERATOR Gender Identity Not on file Sexual Orientation Not on file Last Filed Vital Signs Vital Sign Reading Time Taken Comments Blood Pressure 137/63 03/03/2015 12:40 PM ROLL PRESS OPERATOR Pulse 65 03/03/2015 12:40 PM ROLL PRESS OPERATOR Temperature 36.1 C (97 F) 03/03/2015 12:40 PM ROLL PRESS OPERATOR Respiratory Rate 16 03/03/2015 12:40 PM ROLL PRESS OPERATOR Oxygen Saturation 100% 03/03/2015 12:40 PM ROLL PRESS OPERATOR Inhaled Oxygen Concentration - - Weight 98.9 kg (218 lb) 03/03/2015 9:57 AM ROLL PRESS OPERATOR Height 167.6 cm (5' 6) 03/03/2015 9:57 AM ROLL PRESS OPERATOR Body Mass Index 35.19 03/03/2015 9:57 AM ROLL PRESS OPERATOR Plan of Treatment Health Maintenance Due Date Last Done Comments BONE DENSITY TESTING 1945 HEPATITIS C SCREENING 02/09/1964 DTAP/TDAP/TD VACCINES (1 - Tdap) 1965 PNEUMOCOCCAL VACCINE 50+ (1 of 1 - PCV) 02/14/1996 ZOSTER VACCINE (1 of 2) 02/14/1996 Respiratory Syncytial Virus (RSV) Vaccine Pt: or over 60 yrs (1 - 1-dose 75+ series) 2021 DEPRESSION SCREENING 04/16/2024 MEDICARE AWV CALENDAR YEAR 2024 COVID-19 VACCINE (1 - 2023-2 5 season) 2024 INFLUENZA VACCINE (#1) 2024 HEPATITIS B VACCINE Aged Out No [...] ID:Not on file Address: [address] [place] [address] Payer ID:Not on file Group ID:Not on file Type:Self Pay Address: [facility] MANAGED MEDICARE ADV SELF PAY NO INSURANCE Member Subscriber Plan / Payer (Ef fective for All Dates) Name:Vignesh Henry Member ID:Not on file Relation to Subscriber:Not on file Name:VIGNESH HENRY Subscriber ID:Not on file Address: [address] [place] [address] Payer ID:Not on file Group ID:Not on file Type:Self Pay Address: [facility] MANAGED MEDICARE ADV SELF PAY NO INSURANCE Member Subscriber Plan / Payer (Ef fective for All Dates) Name:Vignesh Henry Member ID:Not on file Relation to Subscriber:Not on file Name:VIGNESH HENRY Subscriber ID:Not on file Address: [address] [place] [address] Payer ID:Not on file Group ID:Not on file Type:Self Pay Address: [place], [place] [employer] MANAGED MEDICARE ADV Care Teams Director Social Welfare Relationship Specialty Start Date End Date Pramod Nix MD [address] [place] [address] PCP - General 10/22/13
--- OUTSIDE RECORDS SUMMARY | 2025-02-19 20:30 | XMS_ITS | Clinical Summary ---
Author Organization [facility] Address [facility] [place] [address] Care Team Providers Care Broadcast Chief Engineer Name Role Phone Pramod Nix MD Primary Care Provider [phone] Allergies Active Allergy Reactions Criticality Noted Date [...] on file Legal Sex Female 9:39 AM BAREBACK RIDER Gender Identity Not on file Sexual Orientation Not on file Last Filed Vital Signs Vital Sign Reading Time Taken Comments Blood Pressure 144/81 05/30/2019 2:28 PM BAREBACK RIDER Pulse 68 05/30/2019 2:28 PM BAREBACK RIDER Temperature 36.5 C (97.7 F) 05/30/2019 9:45 AM BAREBACK RIDER Respiratory Rate 20 05/30/2019 2:28 PM BAREBACK RIDER Oxygen Saturation 98% 05/30/2019 2:28 PM BAREBACK RIDER Inhaled Oxygen Concentration - - Weight 87.1 kg (192 lb) 05/30/2019 9:45 AM BAREBACK RIDER Height 170.2 cm (5' 7) 05/30/2019 9:45 AM BAREBACK RIDER Body Mass Index 30.07 05/30/2019 9:45 AM BAREBACK RIDER Plan of Treatment Health Maintenance Due Date [...] 75+ series) 2021 COVID-19 Vaccine (1 - 2024-2 6 season) 2024 Influenza Adult (#1) 2025 Hepatitis A Vaccines Aged Out No long er eligible based on patient's age to complete this topic Meningococcal B Vaccine Aged Out No l onger eligible based on patient's age to complete this topic Meningococcal Vaccine Aged Out No darcy honey eligible based on patient's age to complete this topic RSV Immunizations Under 20 Months Aged Out No longer eligible based on patient's age to complete this topic Insurance Care Teams Broadcast Chief Engineer Relationship Specialty Start Date End Date Pramod Nix MD [address] [place] [address] PCP - General INTERNAL MEDICINE 05/30/19
--- OUTSIDE RECORDS SUMMARY | 2025-02-19 20:30 | XMS_ITS | Clinical Summary ---
Author Organization [facility] Address [address] [place] [address] Care Team Providers Care Fixed Wing Pilot Name Role Phone Pramod Nix MD Primary Care Provider [phone] Allergies Active Allergy Reactions Criticality Noted Date [...] 06/03/2019 Assessment & Plan (06/04/2019 4:50 PM DIRECT SALES CONSULTANT): UA with 3+ LE, +nitrites, UC growing E coli. L>R flank pain. W/ numbness and hyperesthesia of T12-L1 area. daily ceftriaxone () and switched to keflex () to finish 7 day course. Bilateral hip pain and LBP 06/03/2019 Assessment & Plan (06/04/2019 4:49 PM DIRECT SALES CONSULTANT): W/ T12-L1 numbness and allodynia and lower [...] 06/03/2019 Assessment & Plan (06/03/2019 9:25 AM DIRECT SALES CONSULTANT): Slightly elevated LFTs on admission. No baseline [...] on file Legal Sex Female 1:46 AM DIRECT SALES CONSULTANT Gender Identity Not on file Sexual Orientation Not on file Last Filed Vital Signs Vital Sign Reading Time Taken Comments Blood Pressure 138/62 06/04/2019 2:00 PM DIRECT SALES CONSULTANT Pulse 81 06/04/2019 2:00 PM DIRECT SALES CONSULTANT Temperature 36.8 C (98.2 F) 06/04/2019 5:45 AM DIRECT SALES CONSULTANT Respiratory Rate 18 06/04/2019 12:27 PM DIRECT SALES CONSULTANT Oxygen Saturation 100% 06/04/2019 2:00 PM DIRECT SALES CONSULTANT Inhaled Oxygen Concentration - - Weight 91.4 kg (201 lb 7 oz) 06/02/2019 9:15 AM DIRECT SALES CONSULTANT Height 170.2 cm (5' 7) 06/02/2019 9:15 AM DIRECT SALES CONSULTANT Body Mass Index 31.55 06/02/2019 9:15 AM DIRECT SALES CONSULTANT Plan of Treatment Not on file Insurance [address] [place] [address] [place] [place] [address] [place] [address] MEDICARE ADVANTAGE Advance Directives For more information, please contact: [phone] Documents on File Type Date Recorded Patient Telecommunicator Expl anation ADVANCE DIRECTIVE 06/09/2019 9:36 AM POWER OF OVERHEAD FOREMAN-FINANCIAL ADVANCE DIRECTIVE 06/09/2019 9:29 AM UZMA HEARD * Full Code (Latest Code Status on File) Date Activated Date Inactivated Comments 06/02/2019 9:04 AM 06/04/2019 10:13 PM Care Teams Fixed Wing Pilot Relationship Specialty Start Date End Date Pramod Nix MD [address] [place] [address] PCP - General 06/02/19
== END 2025-02-19 14:17 | disposition home or self-care (01) ==
LOC: ANHLAB 14:18
PROVIDERS: PCP Family Medicine; Visit Provider Nurse Practitioner Family
DX: N39.0 Urinary tract infection, site not specified (principal); I10 Essential (primary) hypertension; R53.83 Other fatigue; E78.5 Hyperlipidemia, unspecified
CPT/HCPCS: 36415; 80048; 81001; 85025; 93005